=== PATIENT | male | born 1955 | race Caucasian/White ===

== ENCOUNTER 2020-12-05 06:20 | Inpatient (IN) | payer MEDICARE, MEDICAID, SELFPAY ==
[2020-12-05] VITALS (13 sets, daily range): BP systolic 93–155; BP diastolic 64–78; PULSE 62–77; RESP 20–23; TEMP 36.2–36.8; O2SAT 91–96; BMI 39.9; BMI 39.1
--- NOTE | 2020-12-05 06:26 | EKG12_ITS ---
Test Reason : SOB Blood Pressure : / mmHG Vent. Rate : 073 BPM Atrial Rate : 073 BPM P-R Int : 204 ms QRS Dur : 096 ms QT Int : 406 ms P-R-T Axes : 025 037 076 degrees QTc Int : 447 ms Normal sinus rhythm Nonspecific ST abnormality Abnormal ECG Confirmed by CHARITY TERRY, JEN ([id number]), editor map LEBRON CASILLAS ([id number]) on 12/08/2020 1:09:12 PM Referred By: BREANNA Confirmed By:JEN NASH MD
[2020-12-05 06:50] LABS: Absolute Lymphocyte Count 1.02 X10^3/uL (0.83-4.51); Basophil# 0.05 X10^3/uL; Basophil% 0.5 % (0-1); Eosinophil# 0.22 X10^3/uL; Eosinophils% 2.3 % (0-5); Hematocrit 41.9 % (40-54); Hemoglobin 11.3 g/dL (13.0-16.5); Lymphocyte # 1.02 X10^3/ul (0.83-4.51); Lymphocyte % 10.8 % (19-41); Mean Corpuscular Hgb 20.4 pg (27.0-32.0); Mean Corpuscular Volume 75.8 fL (80-94); Mean Platelet Vol. 9.8 fl (6.2-12.0); Monocyte# 1.02 X10^3/uL; Monocyte% 10.8 % (0-10); NRBC Flagged by Analyzer 0.7 % (0-5); Neutrophil % 74.5 % (47-70); Platelet Count 323 K/mm3 (150-450); RBC Distribution Width CV 19.7 % (11.6-14.6); RBC Distribution Width SD 51.3 fl (35.1-43.9); Red Blood Count 5.53 M/mm3 (4.6-6.2); White Blood Count 9.4 K/mm3 (4.4-11.0)
--- NOTE | 2020-12-05 06:53 | ED.VIS.DYS ---
HPI History of Present Illness Chief Complaint: Shortness of Breath Informant: patient Narrative Narrative: Patient was at a motel with his significant other, he is not from here, he lives in [place]. He has COPD and is on 3 L nasal cannula with a concentrator, which he had with him tonight. He is wheelchair-bound and has a right AKA, he has A. fib and is on Xarelto and amiodarone, and last year was diagnosed with congestive heart failure for which he is on Lasix and other medications. He also has diabetes and renal failure. Tonight, he rolled backwards in his wheelchair and accidentally fell out of it, and the patient and significant other state that it is difficult to get him back into it when he falls to the floor. They state given that they were in a hotel room, it was more difficult and they called EMS to assist. When they did so, the patient was profoundly hypoxic at 69% on his 3 L nasal cannula. They gave him a nebulizer treatment, this helped some but he still required a nonrebreather. The patient states that he feels just the same that he always does. He denies dyspnea. He has a chronic cough that is no worse than usual and chronic sputum production that is no worse than usual and is not with any different color than usual; it is white. He denies any new lower extremity issues, he appears to have chronic edema in his left lower extremity with changes of stasis. He has never had Covid, he did have his vaccinations, the Pfizer vaccine, one of the end of July and one at the end of August. [facility] Medical History Chronic atrial fibrillation COPD (chronic obstructive pulmonary disease) Diabetes Glaucoma HTN (hypertension) Hypothyroid Oxygen dependent Pacemaker Renal failure Home Medications Xeralto 15 mg PO.IVFORM DAILY 12/05/20 [History Last Taken Unknown] amiodarone 200 mg PO DAILY 12/05/20 [History Last Taken Unknown] amlodipine 10 mg PO DAILY 12/05/20 [History Last Taken Unknown] brimonidine 1 drp EACH EYE BID 12/05/20 [History Last Taken Unknown] buprenorphine HCl 150 mcg BUCCAL DAILY 12/05/20 [History Last Taken Unknown] dorzolamide 1 drp EACH EYE BID 12/05/20 [History Last Taken Unknown] empagliflozin [Jardiance] 40 mg PO DAILY 12/05/20 [History Last Taken Unknown] ergocalciferol (vitamin D2) [Vitamin D2] 50,000 unit PO QWEEK 12/05/20 [History Last Taken Unknown] furosemide [Lasix] 20 mg PO DAILY 12/05/20 [History Last Taken Unknown] insulin glargine [Lantus U-100 Insulin] 20 unit SUBCUT DAILY 12/05/20 [History Last Taken Unknown] insulin glargine [Lantus U-100 Insulin] 60 unit SUBCUT QPM 12/05/20 [History Last Taken Unknown] insulin lispro [Humalog KwikPen Insulin] 20 unit SUBCUT TID 12/05/20 [History Last Taken Unknown] levothyroxine 88 mcg PO DAILY 12/05/20 [History Last Taken Unknown] lovastatin 40 mg PO DAILY 12/05/20 [History Last Taken Unknown] metoprolol succinate 50 mg PO DAILY 12/05/20 [History Last Taken Unknown] netarsudil [Rhopressa] 2 drp EACH EYE QPM 12/05/20 [History Last Taken Unknown] pantoprazole 40 mg PO DAILY 12/05/20 [History Last Taken Unknown] tamsulosin 0.4 mg PO DAILY 12/05/20 [History Last Taken Unknown] ticagrelor [Brilinta] 90 mg PO BID 12/05/20 [History Last Taken Unknown] Allergy/AdvReac Type Severity Reaction Status Date / Time No Known Allergies Allergy Verified 12/05/20 06:27 Surgical History History of cardiac cath History of heart artery stent Social History Smoking Status: Former smoker ROS ROS ED Constitutional Constitutional ED: Denies chills or fever(s) Eyes Eyes: Denies change in vision or diplopia ENT ENT ED: Denies rhinorrhea or sore throat Cardiovascular Cardiovascular: Reports edema; Denies chest pain or palpitations Respiratory/Chest Respiratory/Chest: Reports as per HPI and cough; Denies dyspnea Gastrointestinal Gastrointestinal: Denies abdominal pain, diarrhea, nausea or vomiting Genitourinary Genitourinary ED: Denies dysuria or hematuria Musculoskeletal Musculoskeletal: Denies back pain or neck pain Integumentary Denies abscess or rash Neurologic Neurologic: Denies headache(s), paresthesias or weakness Psychiatric Psychiatric: Denies anxiety or suicidal thoughts EXAM Physical Exam Const Vital Signs: 12/05/20 06:22 12/05/20 06:45 12/05/20 07:22 Temperature 98.0 F Temperature Source Temporal Pulse Rate 76 72 Respiratory Rate 20 H 21 H Respiratory Effort Normal Respiratory Pattern Tachypnea Blood Pressure 149/67 H Blood Pressure Mean 94 Pulse Ox 92 Oxygen Delivery Method Non-Rebreather Oxygen Flow Rate (L/min) 15 Positive well nourished and well developed General Appearance ED: well developed and NAD HEENT Reports moist mucous membranes normocephalic and atraumatic Eyes PERRL and EOMs intact bilaterally Neck full ROM, supple and no JVD Resp normal respiratory effort Effort and Inspection: able to speak in complete sentences and prolonged expiratory phase; Negative for respiratory distress Auscultation: wheezes expiratory wheezes (end) and throughout and diminished lung sounds diffuse; Negative for crackles, rales or rhonchi Cardio regular rate, regular rhythm and no murmurs GI non-tender and non-distended Auscultation: normoactive bowel sounds Palpation: soft Back/Spine no CVA tenderness General Back: other FROM Extremity normal to inspection Extremity Narrative: Healthy appearing stump at right AKA. General Extremety ED: Yes edema; Negative for pulses abnormal or tenderness General Extremity: edema left lower extremity (Thickened skin, nontender erythema, scabbed wounds without infection, findings consistent with stasis dermatitis) mild; Negative for pulses abnormal Neuro oriented x3, CN's II-XII intact bilaterally and no sensory deficits noted Sensorium / Orientation: awake and alert Motor Exam: strength 5/5 throughout Skin no rashes or lesions noted and no wounds MDM MDM MDM Narrative Medical decision making narrative: Patient feels well although he is hypoxic. On a nonrebreather, he is 92-93%. Chest x-ray shows chronic findings, radiology is concerned about a possible right upper lobe pneumonia. It was difficult to tell if he had a pneumonia on top of a very emphysematous right lung, or if he had normal lung findings along with a bleb. Either might explain his hypoxemia if it was acute, he does not appear to have pneumothorax. Giving him more nebulizer treatments to see if we can decrease his oxygen requirement, providing antibiotic coverage, Solu-Medrol, and the plan will be for admission. Do not think he needs to be scanned for a pulmonary embolus since he is therapeutic on Xarelto. Additionally patient does not meet any requirements for sepsis, so blood cultures are not necessary. Lab Data Attestation: I reviewed the patient's lab results. Labs: Laboratory Results - last 24 hr 12/05/20 12/05/20 06:40 06:40 WBC 9.4 RBC 5.53 Hgb 11.3 L Hct 41.9 MCV 75.8 L MCH 20.4 L MCHC 27.0 L RDW Std Deviation 51.3 H RDW Coeff of Alan 19.7 H Plt Count 323 MPV 9.8 Immature Gran % (Auto) 1.100 H Neut % (Auto) 74.5 H Lymph % (Auto) 10.8 L [place] % (Auto) 10.8 H Eos % (Auto) 2.3 Baso % (Auto) 0.5 Absolute Neuts (auto) 7.0 Absolute Lymphs (auto) 1.02 Nucleated RBC % 0.7 Sodium 141 Potassium 4.0 Chloride 104 Carbon Dioxide 32.0 Anion Gap 5 BUN 38 H Creatinine 2.12 H Estim Creat Clear Calc 38.64 Est GFR (MDRD) Af Amer 41 L Est GFR (MDRD) Non-Af 34 L BUN/Creatinine Ratio 17.9 Glucose 239 H Calcium 8.9 Troponin I High Sens 17.0 Radiography Chest X-Ray - ED: 1 View and Chronic Changes (w/ probable large bleb right lung) Diagnostic Testing: Radiology Impression Chest X-Ray 12/05/20 06:54 IMPRESSION: COPD. Possible right upper lobe pneumonia. Electronically Signed: Deepak Colón MD at 7:09 EDT Tel , Service support , EKG Initial EKG: Attestation: I personally reviewed and interpreted this EKG as follows: Interpretation: Sinus Rhythm, No Acute Injury Pattern and Non-Specific ST Changes Prior: No Prior Discharge Plan Dx/Rx/DC Orders Clinical Impression: Acute hypoxemic respiratory failure, Pneumonia, COPD (chronic obstructive pulmonary disease), CHF (congestive heart failure) [facility]
--- NOTE | 2020-12-05 06:54 | RAD_ITS ---
STUDY: X-RAY CHEST REASON FOR EXAM: Male, 65 years old. hypoxemic, copd TECHNIQUE: Single AP portable view of the chest. COMPARISON: None. FINDINGS: Pacemaker is seen on the left side There is hyperinflation of the lungs consistent with chronic obstructive lung disease (COPD). Ill-defined groundglass opacities are seen in the right upper lobe suggesting pneumonia. There is no demonstrated pleural abnormality. Normal size heart. Normal mediastinum and aroldo. Normal visualized pulmonary arteries. Normal visualized aortic arch and descending thoracic aorta. Normal visualized thoracic spine. Normal visualized ribs, clavicles, and shoulders. There is no demonstrated abnormality of the visualized soft tissue structures of the upper abdomen. RAD/Chest 1 View (Portable) IMPRESSION: COPD. Possible right upper lobe pneumonia. Electronically Signed: Deepak Colón MD at 7:09 EDT Tel , Service support ,
[2020-12-05 07:08] LABS: Anion Gap 5 (5-15); BUN 38 mg/dL (7-18); BUN/Creat Ratio 17.9 RATIO (10-20); Calcium,Total 8.9 mg/dL (8.5-10.1); Chloride 104 mmol/L (98-107); Creatinine, Serum 2.12 mg/dL (0.70-1.30); EST Glomerular Filtration Rate 34 mL/min (>60); Est Glom Filt Rate - Afr Amer 41 mL/min (>60); Estimated Creatinine Clearance 38.64 ml/min; Glucose 239 mg/dL (74-106); Sodium Level 141 mmol/L (136-145)
[2020-12-05] MEDS: Albuterol 2.5 MG/3 ML VIAL.NEB. INHALATION ×2 (07:15→07:25)
--- NOTE | 2020-12-05 07:28 | CPS ---
only 2 doses ordered
[2020-12-05] MEDS: MethylPREDNISolone 125 MG/2 ML Vial IV (07:37)
[2020-12-05] MEDS: Ceftriaxone 1 GM/50 ML BAG IV (07:38)
--- NOTE | 2020-12-05 07:45 | ED.RN ---
pt o2 sats dropped to 85% while sleeping. place on 2 l o2. sats 96%
--- NOTE | 2020-12-05 07:47 | PCM.HP.STD ---
HPI - General General Date of Admission: 12/05/20 Date of Service: 12/05/20 Chief Complaint: shortness of breath HPI Narrative MARIE WALDEN, is a 65 M who presents with hypoxia. Patient is wheelchair dependent and is on vacation with his from [place] and was getting into the bathroom where his wheelchair caught and he fell backwards in a wheelchair. Patient denies hitting his head nor any loss consciousness. His was unable to get him back into his wheelchair so EMS was called. EMS went to assist but noted that his pulse ox was 69%. Patient denied any shortness of breath. Patient was brought to the emergency room and was having pulse ox in the 80s and was put on nonrebreather where his pulse ox is improved into the 90s. Patient had chest x-ray that was concerning for pneumonia and did receive ceftriaxone and Rocephin. Patient denies any fever chills but has been having increased cough as of late. Patient is home O2 dependent but has been using his condenser which was brought with him and tanks for the road trip. Patient has been vaccinated for COVID-19. [facility] Medical History (Updated 12/05/20 @ 07:[address] Kalen Reaves, ) CHF (congestive heart failure) Chronic atrial fibrillation CKD (chronic kidney disease), stage III COPD (chronic obstructive pulmonary disease) COPD (chronic obstructive pulmonary disease) Diabetes Glaucoma History of right above knee amputation HTN (hypertension) Hypothyroid Oxygen dependent Pacemaker Renal failure VTE (venous thromboembolism) Home Medications Xeralto 15 mg PO.IVFORM DAILY 12/05/20 [History Last Taken Unknown] amiodarone 200 mg PO DAILY 12/05/20 [History Last Taken Unknown] amlodipine 10 mg PO DAILY 12/05/20 [History Last Taken Unknown] brimonidine 1 drp EACH EYE BID 12/05/20 [History Last Taken Unknown] buprenorphine HCl 150 mcg BUCCAL DAILY 12/05/20 [History Last Taken Unknown] dorzolamide 1 drp EACH EYE BID 12/05/20 [History Last Taken Unknown] empagliflozin [Jardiance] 40 mg PO DAILY 12/05/20 [History Last Taken Unknown] ergocalciferol (vitamin D2) [Vitamin D2] 50,000 unit PO QWEEK 12/05/20 [History Last Taken Unknown] furosemide [Lasix] 20 mg PO DAILY 12/05/20 [History Last Taken Unknown] insulin glargine [Lantus U-100 Insulin] 20 unit SUBCUT DAILY 12/05/20 [History Last Taken Unknown] insulin glargine [Lantus U-100 Insulin] 60 unit SUBCUT QPM 12/05/20 [History Last Taken Unknown] insulin lispro [Humalog KwikPen Insulin] 20 unit SUBCUT TID 12/05/20 [History Last Taken Unknown] levothyroxine 88 mcg PO DAILY 12/05/20 [History Last Taken Unknown] lovastatin 40 mg PO DAILY 12/05/20 [History Last Taken Unknown] metoprolol succinate 50 mg PO DAILY 12/05/20 [History Last Taken Unknown] netarsudil [Rhopressa] 2 drp EACH EYE QPM 12/05/20 [History Last Taken Unknown] pantoprazole 40 mg PO DAILY 12/05/20 [History Last Taken Unknown] tamsulosin 0.4 mg PO DAILY 12/05/20 [History Last Taken Unknown] ticagrelor [Brilinta] 90 mg PO BID 12/05/20 [History Last Taken Unknown] Allergy/AdvReac Type Severity Reaction Status Date / Time No Known Allergies Allergy Verified 12/05/20 06:27 Family History (Updated 12/05/20 @ 07:[address] Kalen Reaves DO) Other Heart disease Surgical History History of cardiac cath History of heart artery stent Social History Smoking Status: Former smoker ROS ROS Narrative All review of systems were negative except as mentioned above in the history of present illness and the other review of systems. Constitutional Constitutional: Denies chills or fatigue Cardiovascular Cardiovascular: Reports edema and other Details: Edema and left lower extremity overall improving. ; Denies chest pain Respiratory/Chest Respiratory/Chest: Reports cough and dyspnea Gastrointestinal Gastrointestinal: Denies abdominal pain Genitourinary Genitourinary: Denies burning urination Vital Signs Vital Signs Vital Signs: 12/05/20 06:22 12/05/20 06:45 12/05/20 07:22 Temperature 36.7 C Temperature Source Temporal Pulse Rate 76 72 Respiratory Rate 20 H 21 H Respiratory Effort Normal Respiratory Pattern Tachypnea Blood Pressure 149/67 H Blood Pressure Mean 94 Pulse Ox 92 Oxygen Delivery Method Non-Rebreather Oxygen Flow Rate (L/min) 15 12/05/20 07:37 Temperature 36.2 C L Temperature Source Temporal Pulse Rate 72 Respiratory Rate 23 H Respiratory Effort Respiratory Pattern Blood Pressure 155/78 H Blood Pressure Mean 103 Pulse Ox 92 Oxygen Delivery Method Non-Rebreather Oxygen Flow Rate (L/min) 2 Weight Weight: 133.4 kg Body Mass Index (BMI) 39.9 Physical Exam Narrative Sitting up in bed on a nonrebreather. No conversational dyspnea. No respiratory distress. Const alert General Appearance: cooperative HEENT normocephalic and moist oral mucous membranes Eyes PERRL Neck no lymphadenopathy Neck Narrative: No thyromegaly Resp normal respiratory effort Resp Narrative: Bibasilar crackles no wheezes. Cardio regular rate, regular rhythm, S1 normal heart sound and S2 normal heart sound GI normal to inspection, nondistended, normoactive bowel sounds, soft to palpation, non-tender, non-distended and hepatosplenomegaly Extremity Extremity Narrative: Right AKA. Left lower extremity with lymphedematous changes. Slight lower extremity edema Skin Skin Narrative: Lymphedematous changes with some crusting on the left anterior woodson Neuro Sensorium / Orientation: awake and alert Results Lab / Micro Data Attestation: I reviewed the patient's lab results. Result Diagrams: 12/05/20 06:40 12/05/20 06:40 Labs: Laboratory Results - last 24 hr 12/05/20 12/05/20 06:40 06:40 WBC 9.4 RBC 5.53 Hgb 11.3 L Hct 41.9 MCV 75.8 L MCH 20.4 L MCHC 27.0 L RDW Std Deviation 51.3 H RDW Coeff of Alan 19.7 H Plt Count 323 MPV 9.8 Immature Gran % (Auto) 1.100 H Neut % (Auto) 74.5 H Lymph % (Auto) 10.8 L [place] % (Auto) 10.8 H Eos % (Auto) 2.3 Baso % (Auto) 0.5 Absolute Neuts (auto) 7.0 Absolute Lymphs (auto) 1.02 Nucleated RBC % 0.7 Sodium 141 Potassium 4.0 Chloride 104 Carbon Dioxide 32.0 Anion Gap 5 BUN 38 H Creatinine 2.12 H Estim Creat Clear Calc 38.64 Est GFR (MDRD) Af Amer 41 L Est GFR (MDRD) Non-Af 34 L BUN/Creatinine Ratio 17.9 Glucose 239 H Calcium 8.9 Troponin I High Sens 17.0 Micro: Microbiology 12/05/20 06:50 SARS-CoV-2 Antigen (Rapid) - Final Mucosa - Nose EKG Initial EKG: Attestation: I personally reviewed and interpreted this EKG as follows: Prior EKG tracings: available for review EKG Rhythm Intrepretation: Sinus Rhythm Radiology Impression Chest X-Ray 12/05/20 06:54 IMPRESSION: COPD. Possible right upper lobe pneumonia. Electronically Signed: Deepak Colón MD at 7:09 EDT Tel , Service support , Assessment & Plan Assessment/Plan (1) CHF (congestive heart failure): QUALIFIERS: Heart failure type: other Qualified Code(s): I50.9 - Heart failure, unspecified (2) VTE (venous thromboembolism): (3) COPD (chronic obstructive pulmonary disease): QUALIFIERS: COPD type: chronic bronchitis Chronic bronchitis type: unspecified Qualified Code(s): J42 - Unspecified chronic bronchitis (4) Acute respiratory failure with hypoxia: PLAN: 1. Acute on chronic hypoxic respiratory failure Due to the patient's history of chronic respiratory failure due to COPD and CHF and sleep apnea. Patient was incidentally noted to be hypoxic when he was laying on the floor in his wheelchair. Reviewing his chest x-ray is more concerning for CHF rather than pneumonia. Patient has been denying any fever and has no leukocytosis. Patient does have sleep apnea supposed to use a trilogy machine but is not doing so. Patient was going to be following up with another sleep study to see about getting a CPAP. I do not suspect Covid. Rapid Covid was negative. Patient has been vaccinated for COVID-19 Plan Patient received antibiotics in the emergency room. We will have any further plans for additional antibiotics as clinically I do not feel the patient has pneumonia Patient may have an acute exacerbation of CHF and will diurese him cautiously given his CKD 3. Check an echocardiogram Wean oxygen as tolerated No indication for BiPAP at this point. Possible the patient may have also had a mucous plugging that may have caused him to be acutely hypoxic. Will put him on chest physiotherapy 2. Presumed acute heart failure with reduced ejection fraction Patient has cardiomegaly on his chest x-ray so I feel that he likely has reduced ejection fraction. Plan: Follow-up echocardiogram IV furosemide Continue with amiodarone 3. History of venous thromboembolic disease Is a explains it, the patient underwent CPR and then apparently was throwing clots to his lower extremities which led to him having what sounds like a necrotic leg on his right which was subsequently amputated above the knee. Plan: Continue with rivaroxaban 4. Diabetes mellitus type 2 Plan: Continue with glargine as well as prandial insulin. + Scale insulin as well. 5. COPD Not in exacerbation at this time Hold off on steroids but continue with bronchodilators 6. CKD 3B Monitor while patient is diuresis 7. VTE prophylaxis: Not indicated as patient is already anticoagulated 8. Advanced care planning: Discussed with the patient. Patient wished to be full CODE STATUS. 9. Disposition: Anticipate hospitalization for 24 to 48 hours. Due to the patient's multiple medical comorbidities patient will require prolonged hospitalization to make sure that he is doing well but also the fact that he does not live in this area and is traveling back to [place] once he leaves. Charges/Coding Visit Charges Inpatient E&M: 34174 Init Hosp L3
--- NOTE | 2020-12-05 08:14 | ECHOCS_ITS ---
Version 2 Reason For Study: HTN Procedure This was a 2D Doppler, Color Flow transthoracic echocardiogram. Technically difficult study due to patients body habitus. Contrast injection performed. Exam performed portable in patient room. Left Ventricle Normal LV size. Moderate concentric left ventricular hypertrophy. Left ventricular systolic function is normal. The estimated ejection fraction is 55 %. Stage 1 diastolic dysfunction. No regional wall motion abnormalities noted. Right Ventricle Normal RV size. Normal systolic function. Tricuspid Valve Normal tricuspid valve. Moderately severe (3+) tricuspid valve insufficiency. Pulmonary artery systolic pressure is 86 mmHg. Severe pulmonary hypertension. Pulmonic Valve The pulmonic valve is not well visualized. Great Vessels Normal aortic root. The pulmonary artery is normal size. Normal inferior vena cava. Pericardium/Pleural No pericardial effusion. Medication Diluted definity 4ml given slow IV push to enhance endocardial definition. MMode/2D Measurements & Calculations LVIDd: 4.5 cm IVSd: 1.7 cm LA dimension: 4.1 cm LVIDs: 3.3 cm LVPWd: 1.5 cm FS: 26.5 % Time Measurements MV dec time: 0.40 sec Doppler Measurements & Calculations MV E max hoa: 63.9 cm/sec MV V2 max: 116.4 cm/sec MV P1/2t max hoa: 83.9 cm/sec MV A max hoa: 103.5 cm/sec MV max P.4 mmHg MV P1/2t: 78.1 msec MV E/A: 0.62 MV V2 mean: 59.0 cm/sec MV dec slope: 314.7 cm/sec2 MV mean P.7 mmHg MV V2 VTI: 27.8 cm MVA(P1/2t): 2.8 cm2 Ao V2 max: 95.3 cm/sec LV V1 max: 102.2 cm/sec PA V2 max: 88.0 cm/sec Ao max P.7 mmHg LV V1 max P.2 mmHg TR max hoa: 455.3 cm/sec TR max P.9 mmHg ECHO/Echo Complete W/ Contrast Interpretation Summary Normal LV size. Moderate concentric left ventricular hypertrophy. Left ventricular systolic function is normal. The estimated ejection fraction is 55 %. Stage 1 diastolic dysfunction. Severe pulmonary hypertension. Pulmonary artery systolic pressure is 86 mmHg. Ordering Physician: Kalen Reaves Referring Physician: Out of Town Doctor-patient visiting from [place] Performed By: Jaden Cedeno RCS
[2020-12-05 09:05] LABS: Troponin-I HS 15.1 pg/mL (3.0-78.5)
[2020-12-05 09:49] LABS: BNP,B-Type NATRIURETIC PEPTIDE 136.2 pg/mL (0-100)
[2020-12-05] MEDS: Insulin Lispro 100 UNIT/ML INSULN.PEN 20 UNIT SC ×3 (10:00→17:17)
[2020-12-05] MEDS: Furosemide 40 MG/4 ML Vial IV ×2 (10:43→17:17)
[2020-12-05] MEDS: guaiFENesin 600 MG Tablet PO ×2 (10:44→21:56)
[2020-12-05] MEDS: TICAGRELOR 90 MG TABLET PO ×2 (10:44→21:56)
[2020-12-05] MEDS: amLODIPine 10 MG Tablet PO (10:44)
[2020-12-05] MEDS: Empagliflozin 10 MG Tablet PO (10:44)
[2020-12-05] MEDS: Amiodarone 200 MG Tablet PO (10:44)
[2020-12-05] MEDS: Pantoprazole Sodium 40 MG Tablet PO (10:44)
[2020-12-05] MEDS: Metoprolol(XL)Succ 50 MG Tablet PO (10:44)
[2020-12-05] MEDS: BRIMONIDINE 0.15% 5 ML Bottle 1 DRP EACH EYE ×2 (10:45→21:54)
[2020-12-05] MEDS: buPROPion (XL) 150 MG TABLET.XL PO (10:45)
[2020-12-05 12:36] LABS: Bedside Glucose 341 mg/dL (70-110)
[2020-12-05] MEDS: Insulin Lispro 100 UNIT/ML INSULN.PEN SC ×2 (12:58→17:17)
[2020-12-05] MEDS: Dorzolamide HCL/Timolol 10 ml Bottle 1 DRP EACH EYE ×2 (12:59→21:54)
[2020-12-05 13:32] LABS: Troponin-I HS 11.5 pg/mL (3.0-78.5)
[2020-12-05 17:10] LABS: Bedside Glucose 304 mg/dL (70-110)
[2020-12-05] MEDS: Tamsulosin HCl 0.4 MG Capsule PO (17:17)
[2020-12-05] MEDS: 0.9% Saline Lock 10 ML Syringe IV (17:17)
[2020-12-05] MEDS: Rivaroxaban 15 MG Tablet PO (17:17)
[2020-12-05] MEDS: NETARSUDIL MESYLATE 1 DRP OPHTHALMIC (21:53)
[2020-12-05] MEDS: Atorvastatin Calcium 40 MG Tablet PO (21:56)
[2020-12-05 22:10] LABS: Bedside Glucose 253 mg/dL (70-110)
[2020-12-06] VITALS (13 sets, daily range): BP systolic 116–147; BP diastolic 34–87; PULSE 56–68; RESP 16–20; TEMP 36.3–37; O2SAT 90–96
[2020-12-06] MEDS: Levothyroxine 88 MCG Tablet PO (05:46)
[2020-12-06 06:41] LABS: Absolute Lymphocyte Count 0.87 X10^3/uL (0.83-4.51); Absolute Neutrophil Count 8.2 X10^3/uL (2.0-7.7); Basophil# 0.02 X10^3/uL; Basophil% 0.2 % (0-1); Hemoglobin 10.6 g/dL (13.0-16.5); Lymphocyte # 0.87 X10^3/ul (0.83-4.51); Lymphocyte % 8.6 % (19-41); Mean Corp Hgb Conc 27.2 g/dL (32-36); Mean Corpuscular Hgb 20.7 pg (27.0-32.0); Mean Corpuscular Volume 76.2 fL (80-94); Mean Platelet Vol. 9.2 fl (6.2-12.0); Monocyte# 1.03 X10^3/uL; Monocyte% 10.1 % (0-10); NRBC Flagged by Analyzer 0.4 % (0-5); Neutrophil # 8.17 X10^3/uL (2.7-7.7); Neutrophil % 80.4 % (47-70); Platelet Count 296 K/mm3 (150-450); RBC Distribution Width CV 19.7 % (11.6-14.6); RBC Distribution Width SD 51.6 fl (35.1-43.9); Red Blood Count 5.12 M/mm3 (4.6-6.2); White Blood Count 10.2 K/mm3 (4.4-11.0)
[2020-12-06 07:13] LABS: ALB/GLOB Ratio 0.8 RATIO (0.9-2.4); AST(SGOT) 13 U/L (15-37); Alanine Aminotransfer ALT/SGPT 19 U/L (16-61); Alkaline Phosphatase 93 U/L (45-117); Anion Gap 5 (5-15); BUN 48 mg/dL (7-18); BUN/Creat Ratio 20.8 RATIO (10-20); Calcium,Total 8.6 mg/dL (8.5-10.1); Chloride 105 mmol/L (98-107); Creatinine, Serum 2.31 mg/dL (0.70-1.30); EST Glomerular Filtration Rate 30 mL/min (>60); Est Glom Filt Rate - Afr Amer 37 mL/min (>60); Estimated Creatinine Clearance 35.46 ml/min; Globulin 3.9 g/dL (2.2-4.2); Glucose 237 mg/dL (74-106); Protein, Total 6.9 g/dL (6.4-8.2); Sodium Level 142 mmol/L (136-145)
[2020-12-06] MEDS: Insulin Lispro 100 UNIT/ML INSULN.PEN SC ×3 (07:59→17:22)
[2020-12-06] MEDS: Insulin Lispro 100 UNIT/ML INSULN.PEN 20 UNIT SC ×3 (08:00→17:23)
[2020-12-06] MEDS: Amiodarone 200 MG Tablet PO (08:01)
[2020-12-06] MEDS: 0.9% Saline Lock 10 ML Syringe IV ×2 (08:06→21:37)
[2020-12-06 08:31] LABS: Bedside Glucose 351 mg/dL (70-110)
--- NOTE | 2020-12-06 09:35 | CASEMGMT ---
RN SUZANNE Face to Face with patient for initial transition planning/care coordination assessment. RN CM introduced self and role at [facility]. Patient sitting in chair, alert and oriented. Patient willing to participate in assessment and is able to answer all questions appropriately. Care providers, pharmacy, and demographics verified. Patient wishes to discharge home, denies need for home health at this time. Patient states he has no further needs or concerns at this time. CM to follow for discharge planning needs that may arise. Patient traveling home from visiting [place] PCP: Gali Suosa Specialists: Sarah Beth seat installer Preferred Pharmacy: [facility] Insurance: [employer] Prescription Benefit: yes Living Will/HPOA: yes, significant other, Rosa Huang LNOK: sig other Living Arrangements: Patient lives with significant other in 1 story home with ramp to enter the home. Patient states he is independent with selfcare at home. Transportation: Significant other DME/HHC: Patient states he has tub bench, walker, wheelchair, cpap, and home oxygen with portability at 3 lpm. Patient denies needs for HHC Disposition Plan: Patient to discharge home with family support and follow-up plans in place. Ronel MCCARTNEY, RN, CM
--- NOTE | 2020-12-06 10:56 | PN.HOSP_ITS ---
Subjective Subjective On 10 liters of oxygen. States he has been checking his oxygen, but does not know the results. Objective Data Objective Data Vital Signs: Vital Signs Temp Pulse Resp BP Pulse Ox 36.3 C L 61 18 144/87 H 95 12/06/20 07:55 12/06/20 07:55 12/06/20 07:55 12/06/20 07:55 12/06/20 07:55 Oxygen Flow Rate (L/min) 10 Oxygen Delivery Method Nasal Cannula Weight: 129.9 kg Body Mass Index (BMI) 39.1 Intake & Output: Intake and Output for Last 24 Hours 12/04/20 12/05/20 12/06/20 23:59 23:59 23:59 Intake Total 1865 / 1865 320 / 320 Output Total 3190 / 3190 1075 / 1075 Balance -1325 / -1325 -755 / -755 Lab / Micro Data Result Diagrams: 12/06/20 06:34 12/06/20 06:34 Labs: Laboratory Results - last 24 hr 12/05/20 12/05/20 12/05/20 12:29 13:05 16:50 WBC RBC Hgb Hct MCV MCH MCHC RDW Std Deviation RDW Coeff of Alan Plt Count MPV Immature Gran % (Auto) Neut % (Auto) Lymph % (Auto) Irion % (Auto) Eos % (Auto) Baso % (Auto) Absolute Neuts (auto) Absolute Lymphs (auto) Nucleated RBC % Sodium Potassium Chloride Carbon Dioxide Anion Gap BUN Creatinine Estim Creat Clear Calc Est GFR (MDRD) Af Amer Est GFR (MDRD) Non-Af BUN/Creatinine Ratio Glucose Calcium Total Bilirubin AST ALT Alkaline Phosphatase Troponin I High Sens 11.5 Total Protein Albumin Globulin Albumin/Globulin Ratio POC Glucose 341 H 304 H 12/05/20 12/06/20 12/06/20 21:50 06:34 06:34 WBC 10.2 RBC 5.12 Hgb 10.6 L Hct 39.0 L MCV 76.2 L MCH 20.7 L MCHC 27.2 L RDW Std Deviation 51.6 H RDW Coeff of Alan 19.7 H Plt Count 296 MPV 9.2 Immature Gran % (Auto) 0.700 Neut % (Auto) 80.4 H Lymph % (Auto) 8.6 L Irion % (Auto) 10.1 H Eos % (Auto) 0.0 Baso % (Auto) 0.2 Absolute Neuts (auto) 8.2 H Absolute Lymphs (auto) 0.87 Nucleated RBC % 0.4 Sodium 142 Potassium 4.0 Chloride 105 Carbon Dioxide 32.0 Anion Gap 5 BUN 48 H Creatinine 2.31 H Estim Creat Clear Calc 35.46 Est GFR (MDRD) Af Amer 37 L Est GFR (MDRD) Non-Af 30 L BUN/Creatinine Ratio 20.8 H Glucose 237 H Calcium 8.6 Total Bilirubin 0.60 AST 13 L ALT 19 Alkaline Phosphatase 93 Troponin I High Sens Total Protein 6.9 Albumin 3.0 L Globulin 3.9 Albumin/Globulin Ratio 0.8 L POC Glucose 253 H 12/06/20 07:52 WBC RBC Hgb Hct MCV MCH MCHC RDW Std Deviation RDW Coeff of Alan Plt Count MPV Immature Gran % (Auto) Neut % (Auto) Lymph % (Auto) Irion % (Auto) Eos % (Auto) Baso % (Auto) Absolute Neuts (auto) Absolute Lymphs (auto) Nucleated RBC % Sodium Potassium Chloride Carbon Dioxide Anion Gap BUN Creatinine Estim Creat Clear Calc Est GFR (MDRD) Af Amer Est GFR (MDRD) Non-Af BUN/Creatinine Ratio Glucose Calcium Total Bilirubin AST ALT Alkaline Phosphatase Troponin I High Sens Total Protein Albumin Globulin Albumin/Globulin Ratio POC Glucose 351 H Micro: Microbiology 12/05/20 06:50 Mucosa - Nose SARS-CoV-2 Antigen (Rapid) - Final Radiography Diagnostic Testing: Radiology Impression Echocardiogram 12/05/20 08:14 Interpretation Summary Normal LV size. Moderate concentric left ventricular hypertrophy. Left ventricular systolic function is normal. The estimated ejection fraction is 55 %. Stage 1 diastolic dysfunction. Severe pulmonary hypertension. Pulmonary artery systolic pressure is 86 mmHg. Ordering Physician: Kalen Reaves Referring Physician: Out of Town Doctor-patient visiting from [place] Performed By: Jaden Cedeno RCS Physical Exam Const alert Constitutional Narrative: Up in chair. flat affect. HEENT head/scalp atraumatic Head and Scalp: normocephalic Resp Resp Narrative: diminished. clear Cardio regular rate, regular rhythm, S1 normal heart sound and S2 normal heart sound GI normal to inspection, nondistended, normoactive bowel sounds, soft to palpation, non-tender and non-distended GI Narrative: obese. Extremity Extremity Narrative: no edema in LLE Assessment & Plan Assessment/Plan (1) CHF (congestive heart failure): QUALIFIERS: Heart failure type: other Qualified Code(s): I50.9 - Heart failure, unspecified (2) VTE (venous thromboembolism): (3) COPD (chronic obstructive pulmonary disease): QUALIFIERS: COPD type: chronic bronchitis Chronic bronchitis type: unspecified Qualified Code(s): J42 - Unspecified chronic bronchitis (4) Acute respiratory failure with hypoxia: PLAN: 1. Acute on chronic hypoxic respiratory failure Due to the patient's history of chronic respiratory failure due to COPD and CHF and sleep apnea. Patient was incidentally noted to be hypoxic when he was laying on the floor in his wheelchair. Reviewing his chest x-ray is more concerning for CHF rather than pneumonia. Patient has been denying any fever and has no leukocytosis. Patient does have sleep apnea supposed to use a trilogy machine but is not doing so. Patient was going to be following up with another sleep study to see about getting a CPAP. I do not suspect Covid. Rapid Covid was negative. Patient has been vaccinated for COVID-19 Plan * Patient received antibiotics in the emergency room. We will have any further plans for additional antibiotics as clinically I do not feel the patient has pneumonia * Patient may have an acute exacerbation of CHF and will diurese him cautiously given his CKD 3. * Check an echocardiogram * Wean oxygen as tolerated * No indication for BiPAP at this point. * Possible the patient may have also had a mucous plugging that may have caused him to be acutely hypoxic. Will put him on chest physiotherapy * check records from [facility] in [place], [place] 2. Presumed acute heart failure with reduced ejection fraction Patient has cardiomegaly on his chest x-ray so I feel that he likely has reduced ejection fraction. Plan: * Follow-up echocardiogram * change furosemide to PO * Continue with amiodarone 3. History of venous thromboembolic disease Is a explains it, the patient underwent CPR and then apparently was throwing clots to his lower extremities which led to him having what sounds like a necrotic leg on his right which was subsequently amputated above the knee. Plan: Continue with rivaroxaban 4. Diabetes mellitus type 2 Plan: Continue with glargine as well as prandial insulin. + Scale insulin as well. 5. COPD Given lack of improvement will add methylpred Hold off on steroids but continue with bronchodilators 6. CKD 3B Monitor while patient is diuresis 7. VTE prophylaxis: Not indicated as patient is already anticoagulated 8. Advanced care planning: Discussed with the patient. Patient wished to be full CODE STATUS. 9. Disposition: Ongoing. Pt will need to be on far less oxygen prior to discharge as he was on a road trip. Charges/Coding Visit Charges Inpatient E&M: 36865 Subs Hosp L3
[2020-12-06] MEDS: BRIMONIDINE 0.15% 5 ML Bottle 1 DRP EACH EYE ×2 (10:57→21:33)
[2020-12-06] MEDS: Dorzolamide HCL/Timolol 10 ml Bottle 1 DRP EACH EYE ×2 (10:57→21:32)
[2020-12-06] MEDS: TICAGRELOR 90 MG TABLET PO ×2 (10:58→21:32)
[2020-12-06] MEDS: Empagliflozin 10 MG Tablet PO (10:58)
[2020-12-06] MEDS: guaiFENesin 600 MG Tablet PO ×2 (10:59→21:32)
[2020-12-06] MEDS: Furosemide 40 MG/4 ML Vial IV (10:59)
[2020-12-06] MEDS: amLODIPine 10 MG Tablet PO (11:00)
[2020-12-06] MEDS: Pantoprazole Sodium 40 MG Tablet PO (11:00)
[2020-12-06] MEDS: buPROPion (XL) 150 MG TABLET.XL PO (11:01)
[2020-12-06] MEDS: Metoprolol(XL)Succ 50 MG Tablet PO (11:01)
[2020-12-06 12:26] LABS: Bedside Glucose 150 mg/dL (70-110)
[2020-12-06 16:41] LABS: Bedside Glucose 173 mg/dL (70-110)
[2020-12-06] MEDS: Rivaroxaban 15 MG Tablet PO (17:25)
[2020-12-06] MEDS: Tamsulosin HCl 0.4 MG Capsule PO (17:26)
[2020-12-06] MEDS: Furosemide 40 MG Tablet PO (17:26)
[2020-12-06] MEDS: Ipratropium/Albuterol Sulfate 3 ML AMPUL.NEB INHALATION (19:04)
[2020-12-06] MEDS: Atorvastatin Calcium 40 MG Tablet PO (21:32)
[2020-12-06] MEDS: NETARSUDIL MESYLATE 1 DRP OPHTHALMIC (21:32)
[2020-12-06 21:45] LABS: Bedside Glucose 243 mg/dL (70-110)
[2020-12-06] MEDS: Albuterol 2.5 MG/3 ML VIAL.NEB. INHALATION (22:48)
[2020-12-07] VITALS (15 sets, daily range): BP systolic 110–138; BP diastolic 43–65; PULSE 51–66; RESP 16–22; TEMP 36.4–36.9; O2SAT 89–96
[2020-12-07 05:37] LABS: Absolute Lymphocyte Count 0.35 X10^3/uL (0.83-4.51); Absolute Neutrophil Count 7.7 X10^3/uL (2.0-7.7); Basophil# 0.02 X10^3/uL; Basophil% 0.2 % (0-1); Hematocrit 40.6 % (40-54); Hemoglobin 11.1 g/dL (13.0-16.5); Lymphocyte # 0.35 X10^3/ul (0.83-4.51); Lymphocyte % 4.2 % (19-41); Mean Corp Hgb Conc 27.3 g/dL (32-36); Mean Corpuscular Hgb 20.6 pg (27.0-32.0); Mean Corpuscular Volume 75.2 fL (80-94); Mean Platelet Vol. 9.8 fl (6.2-12.0); Monocyte# 0.23 X10^3/uL; Monocyte% 2.7 % (0-10); NRBC Flagged by Analyzer 0 % (0-5); Neutrophil # 7.72 X10^3/uL (2.7-7.7); Neutrophil % 92.2 % (47-70); POSITIVE DIFFERENTIAL YES; Platelet Count 322 K/mm3 (150-450); RBC Distribution Width CV 19.7 % (11.6-14.6); RBC Distribution Width SD 50.6 fl (35.1-43.9); White Blood Count 8.4 K/mm3 (4.4-11.0)
[2020-12-07 05:51] LABS: Differential Indicated SCAN CRITERIA MET
[2020-12-07 06:00] LABS: Anion Gap 8 (5-15); BUN 58 mg/dL (7-18); BUN/Creat Ratio 29.3 RATIO (10-20); Calcium,Total 9.1 mg/dL (8.5-10.1); Chloride 99 mmol/L (98-107); Creatinine, Serum 1.98 mg/dL (0.70-1.30); EST Glomerular Filtration Rate 36 mL/min (>60); Est Glom Filt Rate - Afr Amer 44 mL/min (>60); Estimated Creatinine Clearance 41.37 ml/min; Glucose 236 mg/dL (74-106); Potassium 4.1 mmol/L (3.5-5.1); Sodium Level 137 mmol/L (136-145)
[2020-12-07 06:17] LABS: Anisocytosis 1+; Differential Comment SCANNED; Macrocytosis RARE; Microcytosis 1+; Polychromasia RARE
[2020-12-07] MEDS: Levothyroxine 88 MCG Tablet PO (06:19)
[2020-12-07] MEDS: 0.9% Saline Lock 10 ML Syringe IV ×2 (06:20→15:17)
[2020-12-07] MEDS: Ipratropium/Albuterol Sulfate 3 ML AMPUL.NEB INHALATION ×2 (07:09→18:32)
[2020-12-07] MEDS: Insulin Lispro 100 UNIT/ML INSULN.PEN 20 UNIT SC ×3 (08:22→17:42)
[2020-12-07] MEDS: Insulin Lispro 100 UNIT/ML INSULN.PEN SC ×3 (08:23→17:43)
[2020-12-07] MEDS: Amiodarone 200 MG Tablet PO (08:25)
[2020-12-07 09:06] LABS: Bedside Glucose 231 mg/dL (70-110)
[2020-12-07] MEDS: TICAGRELOR 90 MG TABLET PO ×2 (10:07→21:52)
[2020-12-07] MEDS: Empagliflozin 10 MG Tablet PO (10:08)
[2020-12-07] MEDS: Furosemide 40 MG Tablet PO (10:08)
[2020-12-07] MEDS: amLODIPine 10 MG Tablet PO (10:09)
[2020-12-07] MEDS: Pantoprazole Sodium 40 MG Tablet PO (10:09)
[2020-12-07] MEDS: guaiFENesin 600 MG Tablet PO ×2 (10:09→21:52)
[2020-12-07] MEDS: Metoprolol(XL)Succ 50 MG Tablet PO (10:10)
[2020-12-07] MEDS: buPROPion (XL) 150 MG TABLET.XL PO (10:12)
[2020-12-07] MEDS: BRIMONIDINE 0.15% 5 ML Bottle 1 DRP EACH EYE ×2 (10:13→22:03)
[2020-12-07] MEDS: Dorzolamide HCL/Timolol 10 ml Bottle 1 DRP EACH EYE ×2 (10:13→22:02)
--- NOTE | 2020-12-07 11:11 | CON.PCM.CC_ITS ---
Assessment & Plan Assessment/Plan (1) Acute respiratory failure with hypoxia: (2) Cor pulmonale, chronic: (3) COPD (chronic obstructive pulmonary disease): PLAN: RECOMMENDATIONS: 1. Continue with aggressive diuresis 2. Monitor off antibiotics 3. Wean oxygen as tolerated 4. Likely wean steroids in the next 24 to 48 hours. Continue bronchodilators 5. Aggressive control of blood sugars 6. BiPAP rescue as necessary with sleep IMPRESSIONS: 1. Acute on chronic hypoxic respiratory failure secondary to cor pulmonale Patient with multiple etiologies for increased pulmonary artery pressures. Presence of clubbing suggests long-term oxygen deprivation. Patient is likely fluid overloaded given his renal function is improving with diuresis. Would continue with diuresis as renal function allows. Low clinical suspicion for COPD exacerbation at this time, but COPD is likely adding to pulmonary artery pressures from a chronic standpoint. Given patient is far from home and is already established with a sorting machine operator, would aggressively diurese and have him follow-up with his primary sorting machine operator. Given low clinical suspicion for exacerbation, a 5-day burst of steroids is likely sufficient. Continue bronchodilators. Patient may benefit from a right heart catheterization, but this likely does not need to be completed as an inpatient. 2. CHF/CKD stage IIIb/diabetes mellitus type 2/history of VTE/morbid obe sity/decreased mobility Complicates care, management, recovery and prognosis. Diabetes is likely to be exacerbated by steroid therapy. Continue with aggressive diuresis. No indications for discontinuation of anticoagulation from my perspective. Patient would benefit from a dietary evaluation on teaching for a low-salt diet. High clinical suspicion the patient has concomitant KIEL, so using BiPAP with AVAPS overnight with a targeted tidal volume of 450 may be necessary if patient continues to be hypoxic. HPI Consult Data Date of Consult: 12/07/20 HPI Narrative HPI Narrative: MARIE WALDEN is a 65 M, with past medical history listed below, who presented to [facility] on 12/05/2020 secondary to progressive shortness of breath. Patient reportedly was at a motel when he started to developing worsening shortness of breath. Patient does have a long history of both cardiac and pulmonary etiologies for which she follows with specialist in this home town in [place]. Patient is typically wheelchair-bound secondary to a right AKA. On the day of presentation, patient had fallen backwards out of his wheelchair and EMS was called. Patient was noted to be 69% on his baseline 3 L nasal cannula oxygen and did not respond to a nebulizer treatment. Patient has not reported any change in his baseline sputum. Patient reportedly did receive his Covid vaccination series. In the ER, patient was afebrile and not tachycardic. However, patient did require 15 L nonrebreather to maintain a saturation of 92%. Blood pressure was slightly high at 149/67. Chest x-ray was not suggestive of any acute abnormalities, but patient did have findings consistent with emphysema. Laboratory work-up was relatively unremarkable except for an anemia of 11.3, creatinine of 2.12 and an elevated glucose of 239. High-sensitivity troponin was normal at 17. Patient was given antibiotics, Solu-Medrol and admitted to the hospital. Patient did not have a CTA as he reportedly has been compliant with his Xarelto therapy. Since being hospitalized, patient feels subjectively slightly improved compared to previous. Patient denies any current chest pain, bowel pain, nausea or vomiting. Patient does readily transport in a wheelchair, but actively transfers himself. Patient states he typically saturates in the low 90s on his 3 L at baseline. Patient states he follows a low-salt diet, but readily admits to having processed meats, macaroni and cheese and chips. Patient does follow with a sorting machine operator and reportedly has relatively advanced COPD. Patient is unaware of his FEV1, but states he has been on oxygen for some time. Patient states he is compliant with his inhaler therapy. Review of systems otherwise negative from a constitutional, HEENT, respiratory, cardiovascular, GI, genitourinary, musculoskeletal, skin, neurologic, psychiatric and hematologic system unless stated above. [facility] Medical History (Updated 12/07/20 @ 11:[address] Jhon Landa MD) Anemia Cardiac defibrillator in place CHF (congestive heart failure) Chronic atrial fibrillation CKD (chronic kidney disease), stage III COPD (chronic obstructive pulmonary disease) Depression Diabetes Former smoker Glaucoma History of right above knee amputation HTN (hypertension) Hypothyroid Oxygen dependent Renal failure VTE (venous thromboembolism) Home Medications Xeralto 15 mg PO.IVFORM DINNER 12/05/20 [History Last Taken 12/04/20] amiodarone 200 mg PO DAILY 12/05/20 [History Last Taken 12/04/20] amlodipine 10 mg PO DAILY 12/05/20 [History Last Taken 12/04/20] atorvastatin 40 mg PO QHS 12/05/20 [History Last Taken 12/04/20] brimonidine 1 drp EACH EYE BID 12/05/20 [History Last Taken 12/04/20] bupropion HCl 150 mg PO DAILY 12/05/20 [History Last Taken 12/04/20] dorzolamide-timolol 1 drp EACH EYE BID 12/05/20 [History Last Taken 12/04/20] empagliflozin [Jardiance] 10 mg PO DAILY 12/05/20 [History Last Taken 12/04/20] ergocalciferol (vitamin D2) [Vitamin D2] 50,000 unit PO QWEEK 12/05/20 [History Last Taken 12/01/20] furosemide [Lasix] 20 mg PO DAILY 12/05/20 [History Last Taken 12/04/20] insulin glargine [Lantus U-100 Insulin] 20 unit SUBCUT DAILY 12/05/20 [History Last Taken 12/04/20] insulin glargine [Lantus U-100 Insulin] 60 unit SUBCUT QPM 12/05/20 [History Last Taken 12/04/20] insulin lispro [Humalog KwikPen Insulin] 25 unit SUBCUT TID 12/05/20 [History Last Taken 12/04/20] levothyroxine 88 mcg PO DAILY 12/05/20 [History Last Taken 12/04/20] metoprolol succinate 50 mg PO DAILY 12/05/20 [History Last Taken 12/04/20] netarsudil [Rhopressa] 1 drp EACH EYE QPM 12/05/20 [History Last Taken 12/04/20] pantoprazole 40 mg PO DAILY 12/05/20 [History Last Taken 12/04/20] tamsulosin 0.4 mg PO DAILY 12/05/20 [History Last Taken 12/04/20] ticagrelor [Brilinta] 90 mg PO BID 12/05/20 [History Last Taken 12/04/20] trazodone 50 mg PO QHS 12/05/20 [History Last Taken 12/04/20] umeclidinium-vilanterol [Anoro Ellipta] 1 ea INHALATION DAILY 12/05/20 [History Last Taken 12/04/20] Allergy/AdvReac Type Severity Reaction Status Date / Time No Known Allergies Allergy Verified 12/05/20 06:27 Family History Other Heart disease Surgical History History of cardiac cath History of heart artery stent Social History Smoking Status: Former smoker ROS ROS Narrative See HPI Physical Exam Const alert, oriented x3 and no apparent distress General Appearance: cooperative and comfortable Nutritional Appearance: morbidly obese HEENT head/scalp atraumatic Head and Scalp: normocephalic Neck General: JVD Lymph Lymphatic: no lymphadenopathy noted Chest Chest Narrative: Increased AP diameter Resp normal respiratory effort Auscultation: diminished lung sounds; Negative for rales, rhonchi or wheezes Cardio regular rate, regular rhythm, S1 normal heart sound and S2 normal heart sound GI normal to inspection, nondistended, normoactive bowel sounds, soft to palpation, non-tender and non-distended GI Narrative: obese. Extremity Extremity Narrative: no edema in LLE, but venous stasis changes noted. Right lower extremity AKA General Extremity: amputation and clubbing Peripheral Pulses: Yes radial pulses present Skin Skin Narrative: Venous stasis changes of the left lower extremity. Significant edema in right AKA Neuro oriented x3, CN's II-XII intact bilaterally, moves all extremities and no focal motor deficits Psych mental status grossly normal, thought process normal and cooperative Lab / Micro Data Result Diagrams: 12/07/20 05:25 12/07/20 05:25 Labs: Laboratory Results - last 24 hr 12/06/20 12/06/20 12/06/20 12:09 16:20 21:26 WBC RBC Hgb Hct MCV MCH MCHC RDW Std Deviation RDW Coeff of Alan Plt Count MPV Immature Gran % (Auto) Neut % (Auto) Lymph % (Auto) Phillips % (Auto) Eos % (Auto) Baso % (Auto) Absolute Neuts (auto) Absolute Lymphs (auto) Nucleated RBC % Differential Comment Polychromasia Anisocytosis Microcytosis Macrocytosis Sodium Potassium Chloride Carbon Dioxide Anion Gap BUN Creatinine Estim Creat Clear Calc Est GFR (MDRD) Af Amer Est GFR (MDRD) Non-Af BUN/Creatinine Ratio Glucose Calcium POC Glucose 150 H 173 H 243 H 12/07/20 12/07/20 12/07/20 05:25 05:25 08:20 WBC 8.4 RBC 5.40 Hgb 11.1 L Hct 40.6 MCV 75.2 L MCH 20.6 L MCHC 27.3 L RDW Std Deviation 50.6 H RDW Coeff of Alan 19.7 H Plt Count 322 MPV 9.8 Immature Gran % (Auto) 0.700 Neut % (Auto) 92.2 H Lymph % (Auto) 4.2 L Phillips % (Auto) 2.7 Eos % (Auto) 0.0 Baso % (Auto) 0.2 Absolute Neuts (auto) 7.7 Absolute Lymphs (auto) 0.35 L Nucleated RBC % 0 Differential Comment SCANNED Polychromasia RARE Anisocytosis 1+ Microcytosis 1+ Macrocytosis RARE Sodium 137 Potassium 4.1 Chloride 99 Carbon Dioxide 30.0 Anion Gap 8 BUN 58 H Creatinine 1.98 H Estim Creat Clear Calc 41.37 Est GFR (MDRD) Af Amer 44 L Est GFR (MDRD) Non-Af 36 L BUN/Creatinine Ratio 29.3 H Glucose 236 H Calcium 9.1 POC Glucose 231 H Charges/Coding Visit Charges Inpatient E&M: 23967 Init Hosp L3
[2020-12-07 11:55] LABS: Bedside Glucose 329 mg/dL (70-110)
--- NOTE | 2020-12-07 12:07 | PN.HOSP_ITS ---
Subjective Subjective breathing fine. No new issues at present. Objective Data Objective Data Vital Signs: Vital Signs Temp Pulse Resp BP Pulse Ox 36.6 C 63 17 130/61 H 94 12/07/20 08:32 12/07/20 10:10 12/07/20 08:32 12/07/20 08:32 12/07/20 08:32 Oxygen Flow Rate (L/min) 8 Oxygen Delivery Method Nasal Cannula Weight: 130 kg Body Mass Index (BMI) 39.1 Intake & Output: Intake and Output for Last 24 Hours 12/05/20 12/06/20 12/07/20 23:59 23:59 23:59 Intake Total 1865 / 1865 1640 / 1640 480 / 480 Output Total 3190 / 3190 3125 / 3125 1200 / 1200 Balance -1325 / -1325 -1485 / -1485 -720 / -720 Lab / Micro Data Result Diagrams: 12/07/20 05:25 12/07/20 05:25 Labs: Laboratory Results - last 24 hr 12/06/20 12/06/20 12/06/20 12:09 16:20 21:26 WBC RBC Hgb Hct MCV MCH MCHC RDW Std Deviation RDW Coeff of Alan Plt Count MPV Immature Gran % (Auto) Neut % (Auto) Lymph % (Auto) Wilkinson % (Auto) Eos % (Auto) Baso % (Auto) Absolute Neuts (auto) Absolute Lymphs (auto) Nucleated RBC % Differential Comment Polychromasia Anisocytosis Microcytosis Macrocytosis Sodium Potassium Chloride Carbon Dioxide Anion Gap BUN Creatinine Estim Creat Clear Calc Est GFR (MDRD) Af Amer Est GFR (MDRD) Non-Af BUN/Creatinine Ratio Glucose Calcium POC Glucose 150 H 173 H 243 H 12/07/20 12/07/20 12/07/20 05:25 05:25 08:20 WBC 8.4 RBC 5.40 Hgb 11.1 L Hct 40.6 MCV 75.2 L MCH 20.6 L MCHC 27.3 L RDW Std Deviation 50.6 H RDW Coeff of Alna 19.7 H Plt Count 322 MPV 9.8 Immature Gran % (Auto) 0.700 Neut % (Auto) 92.2 H Lymph % (Auto) 4.2 L Wilkinson % (Auto) 2.7 Eos % (Auto) 0.0 Baso % (Auto) 0.2 Absolute Neuts (auto) 7.7 Absolute Lymphs (auto) 0.35 L Nucleated RBC % 0 Differential Comment SCANNED Polychromasia RARE Anisocytosis 1+ Microcytosis 1+ Macrocytosis RARE Sodium 137 Potassium 4.1 Chloride 99 Carbon Dioxide 30.0 Anion Gap 8 BUN 58 H Creatinine 1.98 H Estim Creat Clear Calc 41.37 Est GFR (MDRD) Af Amer 44 L Est GFR (MDRD) Non-Af 36 L BUN/Creatinine Ratio 29.3 H Glucose 236 H Calcium 9.1 POC Glucose 231 H 12/07/20 11:46 WBC RBC Hgb Hct MCV MCH MCHC RDW Std Deviation RDW Coeff of Alan Plt Count MPV Immature Gran % (Auto) Neut % (Auto) Lymph % (Auto) Wilkinson % (Auto) Eos % (Auto) Baso % (Auto) Absolute Neuts (auto) Absolute Lymphs (auto) Nucleated RBC % Differential Comment Polychromasia Anisocytosis Microcytosis Macrocytosis Sodium Potassium Chloride Carbon Dioxide Anion Gap BUN Creatinine Estim Creat Clear Calc Est GFR (MDRD) Af Amer Est GFR (MDRD) Non-Af BUN/Creatinine Ratio Glucose Calcium POC Glucose 329 H Micro: Microbiology 12/05/20 06:50 Mucosa - Nose SARS-CoV-2 Antigen (Rapid) - Final Physical Exam Const alert HEENT normocephalic Neck full ROM Chest inspection of chest normal, palpation of chest normal, inspection of breasts normal and palpation of breasts normal Resp normal respiratory effort, no retractions and no use of accessory muscles Resp Narrative: coarse BS Cardio regular rate, regular rhythm, S1 normal heart sound and S2 normal heart sound GI GI Narrative: obese. soft Assessment & Plan Assessment/Plan (1) CHF (congestive heart failure): QUALIFIERS: Heart failure type: other Qualified Code(s): I50.9 - Heart failure, unspecified (2) VTE (venous thromboembolism): (3) COPD (chronic obstructive pulmonary disease): QUALIFIERS: COPD type: chronic bronchitis Chronic bronchitis type: unspecified Qualified Code(s): J42 - Unspecified chronic bronchitis (4) Acute respiratory failure with hypoxia: PLAN: 1. Acute on chronic hypoxic respiratory failure Due to the patient's history of chronic respiratory failure due to COPD and CHF and sleep apnea and severe pulmonary HTN Patient was incidentally noted to be hypoxic when he was laying on the floor in his wheelchair. Reviewing his chest x-ray is more concerning for CHF rather than pneumonia. Patient has been denying any fever and has no leukocytosis. Patient does have sleep apnea supposed to use a trilogy machine but is not doing so. Patient was going to be following up with another sleep study to see about getting a CPAP. I do not suspect Covid. Rapid Covid was negative. Patient has been vaccinated for COVID-19 Plan * Patient received antibiotics in the emergency room. We will have any further plans for additional antibiotics as clinically I do not feel the patient has pneumonia * Patient may have an acute exacerbation of CHF and will diurese him cautiously given his CKD 3. * Wean oxygen as tolerated * Possible the patient may have also had a mucous plugging that may have caused him to be acutely hypoxic, or he has been chronicaly hypoxic and it was seen when EMS came to place him back in his wheelchair.. Will put him on chest physiotherapy * check records from [facility] in [facility] [place]: showed pt had 2 vessle risk PCI on 06/29/2019 with stents to mid-distal left cir and left main * pulmonary following 2. Presumed acute heart failure with preserved ejection fraction EF 55%, complicated by severe pulmonary HTN of RVSP of 86 Plan: * furosemide back to IV * Continue with amiodarone 3. History of venous thromboembolic disease Is a explains it, the patient underwent CPR and then apparently was throwi ng clots to his lower extremities which led to him having what sounds like a necrotic leg on his right which was subsequently amputated above the knee. Plan: Continue with rivaroxaban 4. Diabetes mellitus type 2 Plan: Continue with glargine as well as prandial insulin. + Scale insulin as well. 5. COPD Given lack of improvement will add methylpred No effect with IV steroids. Changed to PO for 5 days 6. CKD 3B Monitor while patient is diuresis 7. VTE prophylaxis: Not indicated as patient is already anticoagulated 8. Advanced care planning: Discussed with the patient. Patient wished to be full CODE STATUS. 9. Disposition: Ongoing. Pt will need to be on far less oxygen prior to dis charge as he was on a road trip. Charges/Coding Visit Charges Inpatient E&M: 76796 Subs Hosp L2
[2020-12-07] MEDS: Furosemide 40 MG/4 ML Vial IV ×2 (15:16→21:52)
[2020-12-07 16:41] LABS: Bedside Glucose 429 mg/dL (70-110)
[2020-12-07] MEDS: Tamsulosin HCl 0.4 MG Capsule PO (17:40)
[2020-12-07] MEDS: Rivaroxaban 15 MG Tablet PO (17:40)
[2020-12-07] MEDS: Atorvastatin Calcium 40 MG Tablet PO (21:52)
[2020-12-07] MEDS: NETARSUDIL MESYLATE 1 DRP OPHTHALMIC (22:04)
[2020-12-07 22:51] LABS: Bedside Glucose 290 mg/dL (70-110)
[2020-12-07] MEDS: Albuterol 2.5 MG/3 ML VIAL.NEB. INHALATION (22:52)
[2020-12-08] VITALS (13 sets, daily range): BP systolic 110–142; BP diastolic 46–73; PULSE 56–70; RESP 16–24; TEMP 36.5–37.1; O2SAT 84–95
[2020-12-08] MEDS: Levothyroxine 88 MCG Tablet PO (05:55)
[2020-12-08] MEDS: 0.9% Saline Lock 10 ML Syringe IV ×2 (05:55→13:07)
[2020-12-08] MEDS: Furosemide 40 MG/4 ML Vial IV ×3 (05:55→20:25)
[2020-12-08 06:56] LABS: Bedside Glucose 285 mg/dL (70-110)
--- NOTE | 2020-12-08 07:02 | PCM.PN.INT ---
Assessment & Plan Assessment/Plan (1) Acute respiratory failure with hypoxia: PLAN: RECOMMENDATIONS: 1. Continue to wean supplemental oxygen as tolerated. 2. Continue diuretic regimen as tolerated by hemodynamics and renal function. 3. Encourage incentive spirometer use and mobilize patient as tolerated. 4. Continue scheduled bronchodilator therapy. 5. Okay to transition to prednisone to complete 5-day burst. 6. Empiric BiPAP therapy with sleep. IMPRESSIONS: 1. Acute on chronic hypoxemic respiratory failure Likely secondary to decompensated heart failure with cor pulmonale contributing. The patient has been responding to diuretic therapy. Oxygenation status is improving. He does report that he regularly utilizes 3 L/min at his baseline. Plan to continue diuretic regimen as tolerated by hemodynamics and renal function. Continue scheduled bronchodilators along with IV steroids. The patient can be transitioned to prednisone to complete a 5-day burst. The patient should follow-up with his primary cop breaker after discharge. 2. CHF/CKD stage IIIb/diabetes mellitus type 2/history of VTE/morbid obesity/decreased mobility Complicates care, management, recovery and prognosis. Diabetes is likely to be exacerbated by steroid therapy. Continue with aggressive diuresis. No indications for discontinuation of anticoagulation from my perspective. This note was generated with [employer] dictation software. It may contain incorrect words, spelling, and punctuation that were not noted in checking the note before signing. Subjective Subjective The patient was seen and examined at the bedside this morning. Events from the last 24 hours have been reviewed. The patient is currently afebrile, hemodynamically stable and maintaining appropriate oxygen saturations on 6 L/min via nasal cannula. The patient is currently documented to be overall net -7 L for the hospital admission. The patient denies any shortness of breath. He does report that he was previously diagnosed with KIEL, but does not regularly utilize any form of nocturnal Pap therapy. He does have a baseline requirement of 3 L/min of supplemental oxygen. Objective Data Objective Data The patient's most recent lab work, culture data and imaging studies have all been personally reviewed. Surface echocardiogram revealed moderate concentric LVH with an ejection fraction of 55% and stage I diastolic dysfunction. Pulmonary artery systolic pressure was estimated to be 86 mmHg. Rapid coronavirus antigen testing was negative. Vital Signs: Vital Signs Temp Pulse Resp BP Pulse Ox 97.7 F L 56 L 16 110/46 L 94 12/08/20 04:00 12/08/20 04:00 12/08/20 04:00 12/08/20 04:00 12/08/20 04:00 Oxygen Flow Rate (L/min) 7 Oxygen Delivery Method Nasal Cannula Weight: 286 lb 9.615 oz Body Mass Index (BMI) 39.1 Intake & Output: Intake and Output for Last 24 Hours 12/06/20 12/07/20 12/08/20 23:59 23:59 23:59 Intake Total 1640 / 1640 1560 / 1800 340 / 340 Output Total 3125 / 3125 4400 / 5000 1700 / 1700 Balance -1485 / -1485 -2840 / -3200 -1360 / -1360 Lab / Micro Data Attestation: I reviewed the patient's lab results. Result Diagrams: 12/07/20 05:25 12/08/20 05:58 Labs: Laboratory Results - last 24 hr 12/07/20 08:20: POC Glucose 231 H 12/07/20 11:46: POC Glucose 329 H 12/07/20 16:36: POC Glucose 429 H 12/07/20 21:59: POC Glucose 290 H 12/08/20 06:50: POC Glucose 285 H Micro: Microbiology 12/05/20 06:50 Mucosa - Nose SARS-CoV-2 Antigen (Rapid) - Final Physical Exam Const alert and no apparent distress General Appearance: cooperative Nutritional Appearance: morbidly obese HEENT normocephalic and head/scalp atraumatic Eyes PERRL and EOMs intact bilaterally Neck supple General: trachea midline Resp Auscultation: diminished lung sounds; Negative for rales, rhonchi or wheezes Cardio regular rate and regular rhythm GI normal to inspection, nondistended, normoactive bowel sounds Extremity General Extremity: amputation Skin General Skin Exam: venous stasis and dermatitis Neuro CN's II-XII intact bilaterally and no focal motor deficits Psych cooperative and affect normal Charges/Coding Visit Charges Inpatient E&M: 23078 Subs Hosp L2
[2020-12-08 07:10] LABS: ALB/GLOB Ratio 0.9 RATIO (0.9-2.4); AST(SGOT) 9 U/L (15-37); Alanine Aminotransfer ALT/SGPT 19 U/L (16-61); Albumin, Serum 3.3 g/dL (3.2-5.0); Alkaline Phosphatase 87 U/L (45-117); Anion Gap 9 (5-15); BUN 66 mg/dL (7-18); BUN/Creat Ratio 30.6 RATIO (10-20); Chloride 96 mmol/L (98-107); Creatinine, Serum 2.16 mg/dL (0.70-1.30); EST Glomerular Filtration Rate 33 mL/min (>60); Est Glom Filt Rate - Afr Amer 40 mL/min (>60); Estimated Creatinine Clearance 37.92 ml/min; Globulin 3.6 g/dL (2.2-4.2); Glucose 285 mg/dL (74-106); Potassium 4.1 mmol/L (3.5-5.1); Protein, Total 6.9 g/dL (6.4-8.2); Sodium Level 137 mmol/L (136-145)
[2020-12-08] MEDS: Ipratropium/Albuterol Sulfate 3 ML AMPUL.NEB INHALATION ×3 (07:37→18:49)
[2020-12-08] MEDS: Insulin Lispro 100 UNIT/ML INSULN.PEN 20 UNIT SC ×3 (08:48→16:37)
[2020-12-08] MEDS: Insulin Lispro 100 UNIT/ML INSULN.PEN SC ×3 (08:48→16:37)
[2020-12-08] MEDS: BRIMONIDINE 0.15% 5 ML Bottle 1 DRP EACH EYE ×2 (08:49→20:25)
[2020-12-08] MEDS: Amiodarone 200 MG Tablet PO (08:49)
[2020-12-08] MEDS: Empagliflozin 10 MG Tablet PO (08:50)
[2020-12-08] MEDS: Dorzolamide HCL/Timolol 10 ml Bottle 1 DRP EACH EYE ×2 (08:50→20:24)
[2020-12-08] MEDS: TICAGRELOR 90 MG TABLET PO ×2 (08:50→20:25)
[2020-12-08] MEDS: guaiFENesin 600 MG Tablet PO ×2 (08:51→20:25)
[2020-12-08] MEDS: amLODIPine 10 MG Tablet PO (08:51)
[2020-12-08] MEDS: Pantoprazole Sodium 40 MG Tablet PO (08:51)
[2020-12-08] MEDS: Ergocalciferol 1.25 MG (50, 000 UNIT) Capsule PO (08:52)
[2020-12-08] MEDS: buPROPion (XL) 150 MG TABLET.XL PO (08:52)
[2020-12-08 09:00] LABS: Bedside Glucose 308 mg/dL (70-110)
[2020-12-08] MEDS: Metoprolol(XL)Succ 50 MG Tablet PO (09:00)
--- NOTE | 2020-12-08 10:30 | CASEMGMT ---
[facility] PALACI[facility] completed palliative screening tool due to Lace/Strata 3. Patient meets criteria for palliative consult. TELLO Dickson updated and consult declined as [place].
--- NOTE | 2020-12-08 10:33 | PCM.DC ---
Discharge Instructions Follow Up Care Test Results: Test results from this visit will be discussed in further detail at your follow-up appointment, if applicable. Discharge Plan Admission Admit Date/Time: 12/05/20 07:46 Attending Provider: Jhonny Cardozo Primary Care Provider: Care Physician,No Primary Consulting Providers: Jhon Landa ; Leonidas Freedman ; Jeanne Richard NP Discharge Orders/Prescriptions Prescriptions: No Action amiodarone 200 mg Tablet 200 mg PO DAILY RF: 0 tamsulosin 0.4 mg Capsule 0.4 mg PO DAILY RF: 0 amlodipine 10 mg Tablet 10 mg PO DAILY RF: 0 pantoprazole 40 mg Tablet,Delayed Release (Dr/Ec) 40 mg PO DAILY RF: 0 furosemide [Lasix] 20 mg Tablet 20 mg PO DAILY RF: 0 brimonidine 0.15 % Drops 1 drp EACH EYE BID RF: 0 Vitamin D2 25,000 unit Capsule 50,000 unit PO QWEEK RF: 0 insulin lispro [Humalog KwikPen Insulin] 100 unit/mL Insulin Pen 25 unit SUBCUT TID RF: 0 Lantus U-100 Insulin 100 unit/mL Cartridge 20 unit SUBCUT DAILY RF: 0 Lantus U-100 Insulin 100 unit/mL Cartridge 60 unit SUBCUT QPM RF: 0 levothyroxine 75 mcg Capsule 88 mcg PO DAILY RF: 0 Brilinta 90 mg Tablet 90 mg PO BID RF: 0 Jardiance 25 mg Tablet 10 mg PO DAILY RF: 0 Rhopressa 0.02 % Drops 1 drp EACH EYE QPM RF: 0 metoprolol succinate 50 mg Capsule,Sprinkle,Er 24hr 50 mg PO DAILY RF: 0 Xeralto 15 mg PO.IVFORM DINNER RF: 0 trazodone 50 mg Tablet 50 mg PO QHS RF: 0 bupropion HCl 150 mg tablet extended release 24 hr 150 mg PO DAILY RF: 0 atorvastatin 40 mg tablet 40 mg PO QHS RF: 0 dorzolamide-timolol 22.3-6.8 mg/mL drops 1 drp EACH EYE BID RF: 0 Anoro Ellipta 62.5-25 mcg/actuation blister with device 1 ea INHALATION DAILY RF: 0 Referrals / Follow Up: Care Physician,No Primary [Primary Care Provider] -
[2020-12-08 11:26] LABS: Bedside Glucose 387 mg/dL (70-110)
--- NOTE | 2020-12-08 13:50 | PN.HOSP_ITS ---
Documented by User: Binh JAVED 12/08/20 14:01 Subjective Subjective Patient is a 65-year-old male comfortably resting in bed, alert and oriented x3. Patient reports mild shortness of breath, although reports improvement from admission. Denies chest pain, palpitations, hemoptysis, sputum production, f ever, chills, N/V/D. Objective Data Objective Data Vital Signs: Vital Signs Temp Pulse Resp BP Pulse Ox 98.5 F 70 18 132/65 H 95 12/08/20 13:03 12/08/20 13:03 12/08/20 13:03 12/08/20 13:03 12/08/20 13:03 Oxygen Flow Rate (L/min) 6 Oxygen Delivery Method Nasal Cannula Weight: 281 lb 12.012 oz Body Mass Index (BMI) 39.1 Intake & Output: Intake and Output for Last 24 Hours 12/06/20 12/07/20 12/08/20 23:59 23:59 23:59 Intake Total 1640 / 1640 1560 / 1800 580 / 580 Output Total 3125 / 3125 4400 / 5000 2500 / 2500 Balance -1485 / -1485 -2840 / -3200 -1920 / -1920 Lab / Micro Data Result Diagrams: 12/07/20 05:25 12/08/20 05:58 Labs: Laboratory Results - last 24 hr 12/07/20 16:36: POC Glucose 429 H 12/07/20 21:59: POC Glucose 290 H 12/08/20 05:58: Sodium 137, Potassium 4.1, Chloride 96 L, Carbon Dioxide 32.0, Anion Gap 9, BUN 66 H, Creatinine 2.16 H, Estim Creat Clear Calc 37.92, Est GFR (MDRD) Af Amer 40 L, Est GFR (MDRD) Non-Af 33 L, BUN/Creatinine Ratio 30.6 H, Glucose 285 H, Calcium 9.0, Total Bilirubin 0.60, AST 9 L, ALT 19, Alkaline Phosphatase 87, Total Protein 6.9, Albumin 3.3, Globulin 3.6, Albumin/Globulin Ratio 0.9 12/08/20 06:50: POC Glucose 285 H 12/08/20 08:44: POC Glucose 308 H 12/08/20 11:21: POC Glucose 387 H Micro: Microbiology 12/05/20 06:50 Mucosa - Nose SARS-CoV-2 Antigen (Rapid) - Final Physical Exam Const alert, oriented x3 and no apparent distress HEENT head/scalp atraumatic and moist oral mucous membranes Head and Scalp: normocephalic Eyes EOMs intact bilaterally and conjunctivae normal Neck no lymphadenopathy, supple and no JVD Resp Resp Narrative: Currently satting 95% on 6 L, baseline is between 3 and 4. Effort and Inspection: labored Auscultation: diminished lung sounds Cardio regular rate, regular rhythm, no murmurs and no JVD GI normal to inspection, nondistended, normoactive bowel sounds, soft to palpation and non-tender Extremity normal to inspection, full ROM and no clubbing, cyanosis or edema Skin no rashes or lesions noted, no wounds, skin turgor normal and no jaundice Neuro CN's II-XII intact bilaterally Psych affect normal Assessment & Plan Assessment/Plan (1) Acute respiratory failure with hypoxia: (2) Acute hypoxemic respiratory failure: (3) COPD (chronic obstructive pulmonary disease): PLAN: Day 4: See subjective. 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 1) acute on chronic hypoxic respiratory failure Etiology mixed between COPD, CHF, sleep apnea and severe pulmonary hypertension. Rapid Covid was negative and patient has been fully vaccinated for COVID-19. Currently satting at 95% on 6 L via nasal cannula, baseline between 3-4. Disposition complicated by fact that patient was traveling at the time of exacerbation and home is in [place]. Plan; continue bronchodilators, continue metoprolol, continue Lasix and steroids. 2)HFpEF Echocardiogram from 12/05 demonstrated normal LV size and systolic function, moderate concentric LVH, estimated EF of 55%, stage I diastolic dysfunction and severe pulmonary hypertension pulmonary artery systolic pressure of 86 mmHg. Plan: furosemide back to IV. Continue with amiodarone 3) history of venous thromboembolic disease Continue Xarelto 4) Diabetes mellitus type 2 Continue with glargine as well as prandial insulin, sliding scale insulin ordered. 5) COPD As above. 6) CKD stage IIIb Continue to monitor BMP. DVT prophylaxis - [place] Patient seen by Binh Dickson PA-C, under the supervision of Dr. Kittoe. Documented by User: Dr. Jhonny Cardozo MD 12/08/20 15:01 Objective Data Lab / Micro Data Result Diagrams: 12/07/20 05:25 12/08/20 05:58 Assessment & Plan Addt'l Comments This patient was seen in conjunction with Binh Dickson PA-C. I have independently interviewed and examined the patient and reviewed pertinent historical, laboratory, and other data. Please refer to Binh Dickson PA-C's note for details of this patient's presentation, findings, and recommendations. I have reviewed Binh Dickson PA-C's note and concur with documented findings. In brief, patient is a 65-year-old gentleman admitted with progressive shortness of breath Physical Examination: GENERAL: Frail looking HEENT: Atraumatic; EYES; Anicteric, Normal Conjunctiva NECK; supple, normal thyroid, RESPIRATORY: Diminished to auscultation CARDIOVASCULAR: Regular S1 S2, GI: soft, normoactive bowel sounds, SKIN: No Rash PSYCH; Flat affect Assessment: 1. Acute hypoxic respiratory failure 2. COPD with acute exacerbation 3. CHF 4. Obstructive sleep apnea 5. Diabetes mellitus type 2 6. Dyslipidemia 7. 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 Chronic kidney disease stage III 9. Hypothyroidism 10. Dyslipidemia 11. Paroxysmal A. fib 12. Essential hypertension 13. Depression 14. GERD 15. BPH 16. Coronary artery disease Recommendations: 1. I have discussed the results of my overview and impressions with the patient 2. Options for management were reviewed Charges/Coding Visit Charges Inpatient E&M: 22229 Subs Hosp L2
[2020-12-08] MEDS: Tamsulosin HCl 0.4 MG Capsule PO (16:37)
[2020-12-08] MEDS: Rivaroxaban 15 MG Tablet PO (16:37)
[2020-12-08 16:51] LABS: Bedside Glucose 287 mg/dL (70-110)
[2020-12-08] MEDS: NETARSUDIL MESYLATE 1 DRP OPHTHALMIC (20:25)
[2020-12-08] MEDS: Atorvastatin Calcium 40 MG Tablet PO (20:25)
[2020-12-08 20:41] LABS: Bedside Glucose 379 mg/dL (70-110)
[2020-12-09] VITALS (7 sets, daily range): BP systolic 130–145; BP diastolic 60–75; PULSE 52–69; RESP 18–20; TEMP 36.7–37.2; O2SAT 91–94
[2020-12-09 05:31] LABS: Absolute Lymphocyte Count 0.41 X10^3/uL (0.83-4.51); Absolute Neutrophil Count 9.7 X10^3/uL (2.0-7.7); Basophil# 0.02 X10^3/uL; Basophil% 0.2 % (0-1); Hematocrit 42.3 % (40-54); Hemoglobin 11.8 g/dL (13.0-16.5); Lymphocyte # 0.41 X10^3/ul (0.83-4.51); Lymphocyte % 3.7 % (19-41); Mean Corp Hgb Conc 27.9 g/dL (32-36); Mean Corpuscular Hgb 20.4 pg (27.0-32.0); Mean Corpuscular Volume 73.2 fL (80-94); Mean Platelet Vol. 9.9 fl (6.2-12.0); Monocyte# 0.76 X10^3/uL; Monocyte% 6.9 % (0-10); NRBC Flagged by Analyzer 0 % (0-5); Neutrophil # 9.71 X10^3/uL (2.7-7.7); Neutrophil % 88.5 % (47-70); POSITIVE DIFFERENTIAL YES; Platelet Count 318 K/mm3 (150-450); RBC Distribution Width CV 19.7 % (11.6-14.6); RBC Distribution Width SD 48.4 fl (35.1-43.9); Red Blood Count 5.78 M/mm3 (4.6-6.2)
[2020-12-09 05:43] LABS: Differential Indicated SCAN CRITERIA MET
[2020-12-09 05:53] LABS: Anion Gap 8 (5-15); BUN 75 mg/dL (7-18); BUN/Creat Ratio 30.7 RATIO (10-20); Calcium,Total 8.9 mg/dL (8.5-10.1); Chloride 95 mmol/L (98-107); Creatinine, Serum 2.44 mg/dL (0.70-1.30); EST Glomerular Filtration Rate 29 mL/min (>60); Est Glom Filt Rate - Afr Amer 35 mL/min (>60); Estimated Creatinine Clearance 33.57 ml/min; Glucose 322 mg/dL (74-106); Potassium 4.1 mmol/L (3.5-5.1); Sodium Level 136 mmol/L (136-145)
[2020-12-09] MEDS: Levothyroxine 88 MCG Tablet PO (06:07)
[2020-12-09] MEDS: Furosemide 40 MG/4 ML Vial IV (06:07)
[2020-12-09] MEDS: Insulin Lispro 100 UNIT/ML INSULN.PEN SC (08:48)
[2020-12-09] MEDS: Insulin Lispro 100 UNIT/ML INSULN.PEN 20 UNIT SC (08:48)
[2020-12-09] MEDS: BRIMONIDINE 0.15% 5 ML Bottle 1 DRP EACH EYE (08:49)
[2020-12-09] MEDS: Dorzolamide HCL/Timolol 10 ml Bottle 1 DRP EACH EYE (08:50)
[2020-12-09] MEDS: TICAGRELOR 90 MG TABLET PO (08:52)
[2020-12-09] MEDS: Metoprolol(XL)Succ 50 MG Tablet PO (08:53)
[2020-12-09] MEDS: Amiodarone 200 MG Tablet PO (08:53)
[2020-12-09] MEDS: guaiFENesin 600 MG Tablet PO (08:53)
[2020-12-09] MEDS: Empagliflozin 10 MG Tablet PO (08:53)
[2020-12-09] MEDS: amLODIPine 10 MG Tablet PO (08:53)
[2020-12-09] MEDS: Pantoprazole Sodium 40 MG Tablet PO (08:53)
[2020-12-09] MEDS: buPROPion (XL) 150 MG TABLET.XL PO (08:54)
[2020-12-09 09:11] LABS: Bedside Glucose 289 mg/dL (70-110)
--- NOTE | 2020-12-09 10:05 | PCM.DC ---
Discharge Instructions Diet Discharge Diet: No restrictions Activity Discharge Activity: Return to Normal Activity Weight Bearing Status: No weight bearing Dressing / Incision Call your doctor if you observe: Fever of 101 or Higher, Inability to urinate, Shortness of breath and Chest pain Follow Up Care Please Follow Up With: Primary care provider When: Within the next two weeks. Test Results: Test results from this visit will be discussed in further detail at your follow-up appointment, if applicable. Discharge Plan Admission Admit Date/Time: 12/05/20 07:46 Primary Reason for Your Visit: Shortness of breath & hypoxia. Attending Provider: Jhonny Cardozo Primary Care Provider: Care Physician,No Primary Consulting Providers: Jhon Landa ; Leonidas Freedman ; Jeanne Richard PULMONARY DISEASE SPECIALIST Discharge Orders/Prescriptions Prescriptions: New prednisone 20 mg tablet 40 mg PO DAILY Qty: 10 RF: 0 Continued amiodarone 200 mg Tablet 200 mg PO DAILY RF: 0 tamsulosin 0.4 mg Capsule 0.4 mg PO DAILY RF: 0 amlodipine 10 mg Tablet 10 mg PO DAILY RF: 0 pantoprazole 40 mg Tablet,Delayed Release (Dr/Ec) 40 mg PO DAILY RF: 0 furosemide [Lasix] 20 mg Tablet 20 mg PO DAILY RF: 0 brimonidine 0.15 % Drops 1 drp EACH EYE BID RF: 0 ergocalciferol (vitamin D2) 25,000 unit Capsule 50,000 unit PO QWEEK RF: 0 insulin lispro [Humalog KwikPen Insulin] 100 unit/mL Insulin Pen 25 unit SUBCUT TID RF: 0 insulin glargine 100 unit/mL Cartridge 20 unit SUBCUT DAILY RF: 0 insulin glargine 100 unit/mL Cartridge 60 unit SUBCUT QPM RF: 0 levothyroxine 75 mcg Capsule 88 mcg PO DAILY RF: 0 Brilinta 90 mg Tablet 90 mg PO BID RF: 0 Jardiance 25 mg Tablet 10 mg PO DAILY RF: 0 Rhopressa 0.02 % Drops 1 drp EACH EYE QPM RF: 0 metoprolol succinate 50 mg Capsule,Sprinkle,Er 24hr 50 mg PO DAILY RF: 0 Xeralto 15 mg PO.IVFORM DINNER RF: 0 trazodone 50 mg Tablet 50 mg PO QHS RF: 0 bupropion HCl 150 mg tablet extended release 24 hr 150 mg PO DAILY RF: 0 atorvastatin 40 mg tablet 40 mg PO QHS RF: 0 dorzolamide-timolol 22.3-6.8 mg/mL drops 1 drp EACH EYE BID RF: 0 Anoro Ellipta 62.5-25 mcg/actuation blister with device 1 ea INHALATION DAILY RF: 0 Referrals / Follow Up: Care Physician,No Primary [Primary Care Provider] - Within 2 Weeks Disposition Disposition (needs filled in before D/C Order can be placed): Home, Self Care
--- NOTE | 2020-12-09 10:18 | DS.PCM_ITS ---
Documented by User: Binh JAVED 12/09/20 10:33 Providers Date of Admission: 12/05/20 Primary Care Physician: No Primary Care Phys Consultations 12/07/20 07:38 Consult: Internal Grinding Machine Operator / Pulmonary Medicine Routine Consulting Provider: Pulmonary Medicine ariadna [facility] Reason for Consult: respiratory failure EMERGENT Consult: No MD Notified: Yes Date Notified: 12/07/20 Time Notified: 07:38 Method of Notification: Text Reason For Visit: ACUTE RESPIRATORY FAILURE Diagnosis Discharge Diagnosis (1) Acute respiratory failure with hypoxia: Status: Acute Code(s): J96.01 - Acute respiratory failure with hypoxia (2) Acute hypoxemic respiratory failure: Status: Acute Code(s): J96.01 - Acute respiratory failure with hypoxia (3) COPD (chronic obstructive pulmonary disease): Status: Chronic Code(s): J44.9 - Chronic obstructive pulmonary disease, unspecified Medications at Discharge Home Medications Anoro Ellipta 1 ea INHALATION DAILY 12/05/20 Brilinta 90 mg PO BID 12/05/20 Jardiance 10 mg PO DAILY 12/05/20 Rhopressa 1 drp EACH EYE QPM 12/05/20 Xeralto 15 mg PO.IVFORM DINNER 12/05/20 amiodarone 200 mg PO DAILY 12/05/20 amlodipine 10 mg PO DAILY 12/05/20 atorvastatin 40 mg PO QHS 12/05/20 brimonidine 1 drp EACH EYE BID 12/05/20 bupropion HCl 150 mg PO DAILY 12/05/20 dorzolamide-timolol 1 drp EACH EYE BID 12/05/20 ergocalciferol (vitamin D2) 50,000 unit PO QWEEK 12/05/20 furosemide [Lasix] 20 mg PO DAILY 12/05/20 insulin glargine 20 unit SUBCUT DAILY 12/05/20 insulin glargine 60 unit SUBCUT QPM 12/05/20 insulin lispro [Humalog KwikPen Insulin] 25 unit SUBCUT TID 12/05/20 levothyroxine 88 mcg PO DAILY 12/05/20 metoprolol succinate 50 mg PO DAILY 12/05/20 pantoprazole 40 mg PO DAILY 12/05/20 tamsulosin 0.4 mg PO DAILY 12/05/20 trazodone 50 mg PO QHS 12/05/20 prednisone 40 mg PO DAILY #10 tab 12/09/20 Hospital Course Summary of Care Provided Minutes Spent on Discharge: 35 Hospital Course: Disposition: Patient to be discharged back home to [place] today. 1) acute on chronic hypoxic respiratory failure Etiology mixed between COPD, CHF, sleep apnea and severe pulmonary hypertension. Rapid Covid was negative and patient has been fully vaccinated for COVID-19. Currently satting at 92% on 3L via nasal cannula, baseline between 3-4. Patient would likely benefit from continued diuresis as an inpatient, however, patient desires to return home and voices understanding to the risks associated to include worsening of his condition and possible . Plan; prednisone 40 mg x 5 days initiated discharge, Lasix 20 mg p.o. daily initiated at discharge, lower dose of Lasix initiated due to patient's elevated creatinine. 2)HFpEF Echocardiogram from 12/05 demonstrated normal LV size and systolic function, moderate concentric LVH, estimated EF of 55%, stage I diastolic dysfunction and severe pulmonary hypertension pulmonary artery systolic pressure of 86 mmHg. Plan: furosemide back to IV. Continue with amiodarone 3) history of venous thromboembolic disease Continue Xarelto 4) Diabetes mellitus type 2 Continue with glargine as well as prandial insulin, sliding scale insulin ordered. 5) COPD As above. 6) RANDY on CKD IIIb Creatinine currently 2.4, no baseline to compare to. Patient likely would benefit from continued diuresis in the hospital but desires to be discharged today. Plan; low-dose Lasix initiated as above. Patient seen by Binh Dickson PA-C, under the supervision of Dr. Cardozo. Physical Exam Narrative Patient is a 65-year-old male comfortably resting in bed, alert and orient x3. Patient reports continued improvement of shortness of breath for admission. Denies chest pain, shortness of breath, palpitations, hemoptysis, sputum production, fever, chills, N/V/D. Const alert, oriented x3 and no apparent distress HEENT normocephalic, head/scalp atraumatic and hearing grossly normal bilaterally Eyes EOMs intact bilaterally and conjunctivae normal Neck no lymphadenopathy, supple and no JVD Resp normal respiratory effort, no retractions and no use of accessory muscles Auscultation: diminished lung sounds Cardio regular rate, regular rhythm, no murmurs and no JVD GI normal to inspection, nondistended, normoactive bowel sounds, soft to palpation and non-tender Extremity Extremity Narrative: RLE above the knee amputation. Skin no rashes or lesions noted, no wounds and skin turgor normal Neuro CN's II-XII intact bilaterally Psych affect normal Weight / BMI Weight Weight: 279 lb 15.793 oz Body Mass Index (BMI) 39.1 ABG / Lab / Microbiology Data Result Diagrams: 12/09/20 05:06 12/09/20 05:06 Laboratory: Laboratory Results - last 24 hr 12/08/20 11:21: POC Glucose 387 H 12/08/20 16:35: POC Glucose 287 H 12/08/20 20:19: POC Glucose 379 H 12/09/20 05:06: WBC 11.0, RBC 5.78, Hgb 11.8 L, Hct 42.3, MCV 73.2 L, MCH 20.4 L , MCHC 27.9 L, RDW Std Deviation 48.4 H, RDW Coeff of Alan 19.7 H, Plt Count 318, MPV 9.9, Immature Gran % (Auto) 0.700, Neut % (Auto) 88.5 H, Lymph % (Auto) 3.7 L, Fisher % (Auto) 6.9, Eos % (Auto) 0.0, Baso % (Auto) 0.2, Absolute Neuts (auto) 9.7 H, Absolute Lymphs (auto) 0.41 L, Nucleated RBC % 0 12/09/20 05:06: Sodium 136, Potassium 4.1, Chloride 95 L, Carbon Dioxide 33.0 H, Anion Gap 8, BUN 75 H, Creatinine 2.44 H, Estim Creat Clear Calc 33.57, Est GFR (MDRD) Af Amer 35 L, Est GFR (MDRD) Non-Af 29 L, BUN/Creatinine Ratio 30.7 H, Glucose 322 H, Calcium 8.9 12/09/20 07:51: POC Glucose 289 H Microbiology: Microbiology 12/05/20 06:50 Mucosa - Nose SARS-CoV-2 Antigen (Rapid) - Final D/C Instructions Discharge Diet: No restrictions Weight Bearing Status: No weight bearing Call your doctor if you observe: Fever of 101 or Higher, Inability to urinate, Shortness of breath and Chest pain Please Follow Up With: Primary care provider When: Within the next two weeks. Meaningful Use Info Meaningful Use Diagnoses (Choose all that apply): CHF CHF JACEK/ARB ordered at discharge?: No Reason JACEK/ARB not ordered?: Worsening renal disease Documented LVEF (%): 55 Discharge Plan Admission Admit Date/Time: 12/05/20 07:46 Primary Reason for Your Visit: Shortness of breath & hypoxia. Attending Provider: Jhonny Cardozo Primary Care Provider: Care Physician,No Primary Consulting Providers: Jhon Landa ; Leonidas Freedman ; Jeanne Richard IMCU NURSE Discharge Orders/Prescriptions Prescriptions: New prednisone 20 mg tablet 40 mg PO DAILY Qty: 10 RF: 0 Continued amiodarone 200 mg Tablet 200 mg PO DAILY RF: 0 tamsulosin 0.4 mg Capsule 0.4 mg PO DAILY RF: 0 amlodipine 10 mg Tablet 10 mg PO DAILY RF: 0 pantoprazole 40 mg Tablet,Delayed Release (Dr/Ec) 40 mg PO DAILY RF: 0 furosemide [Lasix] 20 mg Tablet 20 mg PO DAILY RF: 0 brimonidine 0.15 % Drops 1 drp EACH EYE BID RF: 0 ergocalciferol (vitamin D2) 25,000 unit Capsule 50,000 unit PO QWEEK RF: 0 insulin lispro [Humalog KwikPen Insulin] 100 unit/mL Insulin Pen 25 unit SUBCUT TID RF: 0 insulin glargine 100 unit/mL Cartridge 20 unit SUBCUT DAILY RF: 0 insulin glargine 100 unit/mL Cartridge 60 unit SUBCUT QPM RF: 0 levothyroxine 75 mcg Capsule 88 mcg PO DAILY RF: 0 Brilinta 90 mg Tablet 90 mg PO BID RF: 0 Jardiance 25 mg Tablet 10 mg PO DAILY RF: 0 Rhopressa 0.02 % Drops 1 drp EACH EYE QPM RF: 0 metoprolol succinate 50 mg Capsule,Sprinkle,Er 24hr 50 mg PO DAILY RF: 0 Xeralto 15 mg PO.IVFORM DINNER RF: 0 trazodone 50 mg Tablet 50 mg PO QHS RF: 0 bupropion HCl 150 mg tablet extended release 24 hr 150 mg PO DAILY RF: 0 atorvastatin 40 mg tablet 40 mg PO QHS RF: 0 dorzolamide-timolol 22.3-6.8 mg/mL drops 1 drp EACH EYE BID RF: 0 Anoro Ellipta 62.5-25 mcg/actuation blister with device 1 ea INHALATION DAILY RF: 0 Referrals / Follow Up: Care Physician,No Primary [Primary Care Provider] - Within 2 Weeks Disposition Disposition (needs filled in before D/C Order can be placed): Home, Self Care Documented by User: Dr. Jhonny Cardozo MD 12/09/20 11:54 Providers Date of Admission: 12/05/20 Reason For Visit: ACUTE RESPIRATORY FAILURE Medications at Discharge Home Medications Anoro Ellipta 1 ea INHALATION DAILY 12/05/20 Brilinta 90 mg PO BID 12/05/20 Jardiance 10 mg PO DAILY 12/05/20 Rhopressa 1 drp EACH EYE QPM 12/05/20 Xeralto 15 mg PO.IVFORM DINNER 12/05/20 amiodarone 200 mg PO DAILY 12/05/20 amlodipine 10 mg PO DAILY 12/05/20 atorvastatin 40 mg PO QHS 12/05/20 brimonidine 1 drp EACH EYE BID 12/05/20 bupropion HCl 150 mg PO DAILY 12/05/20 dorzolamide-timolol 1 drp EACH EYE BID 12/05/20 ergocalciferol (vitamin D2) 50,000 unit PO QWEEK 12/05/20 furosemide [Lasix] 20 mg PO DAILY 12/05/20 insulin glargine 20 unit SUBCUT DAILY 12/05/20 insulin glargine 60 unit SUBCUT QPM 12/05/20 insulin lispro [Humalog KwikPen Insulin] 25 unit SUBCUT TID 12/05/20 levothyroxine 88 mcg PO DAILY 12/05/20 metoprolol succinate 50 mg PO DAILY 12/05/20 pantoprazole 40 mg PO DAILY 12/05/20 tamsulosin 0.4 mg PO DAILY 12/05/20 trazodone 50 mg PO QHS 12/05/20 prednisone 40 mg PO DAILY #10 tab 12/09/20 Hospital Course Summary of Care Provided Hospital Course: This patient was seen in conjunction with Binh Dickson PA-C. I have independently interviewed and examined the patient and reviewed pertinent historical, laboratory, and other data. Please refer to Binh Dickson PA-C's note for details of this patient's presentation, findings, and recommendations. I have reviewed Binh Dickson PA-C's note and concur with documented findings. In brief, patient is a 65-year-old gentleman admitted with progressive shortness of breath Assessment: 1. Acute hypoxic respiratory failure 2. COPD with acute exacerbation 3. CHF 4. Obstructive sleep apnea 5. Diabetes mellitus type 2 6. Dyslipidemia 7. 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 Chronic kidney disease stage III 9. Hypothyroidism 10. Dyslipidemia 11. Paroxysmal A. fib 12. Essential hypertension 13. Depression 14. GERD 15. BPH 16. Coronary artery disease Hospital course: As documented above ABG / Lab / Microbiology Data Result Diagrams: 12/09/20 05:06 12/09/20 05:06 Discharge Plan Admission Admit Date/Time: 12/05/20 07:46 Primary Reason for Your Visit: Shortness of breath & hypoxia. Attending Provider: Jhonny Cardozo Primary Care Provider: Care Physician,No Primary Consulting Providers: Jhon Landa ; Leonidas Freedman ; Jeanne Richard IMCU NURSE Discharge Orders/Prescriptions Prescriptions: New prednisone 20 mg tablet 40 mg PO DAILY Qty: 10 RF: 0 Continued amiodarone 200 mg Tablet 200 mg PO DAILY RF: 0 tamsulosin 0.4 mg Capsule 0.4 mg PO DAILY RF: 0 amlodipine 10 mg Tablet 10 mg PO DAILY RF: 0 pantoprazole 40 mg Tablet,Delayed Release (Dr/Ec) 40 mg PO DAILY RF: 0 furosemide [Lasix] 20 mg Tablet 20 mg PO DAILY RF: 0 brimonidine 0.15 % Drops 1 drp EACH EYE BID RF: 0 ergocalciferol (vitamin D2) 25,000 unit Capsule 50,000 unit PO QWEEK RF: 0 insulin lispro [Humalog KwikPen Insulin] 100 unit/mL Insulin Pen 25 unit SUBCUT TID RF: 0 insulin glargine 100 unit/mL Cartridge 20 unit SUBCUT DAILY RF: 0 insulin glargine 100 unit/mL Cartridge 60 unit SUBCUT QPM RF: 0 levothyroxine 75 mcg Capsule 88 mcg PO DAILY RF: 0 Brilinta 90 mg Tablet 90 mg PO BID RF: 0 Jardiance 25 mg Tablet 10 mg PO DAILY RF: 0 Rhopressa 0.02 % Drops 1 drp EACH EYE QPM RF: 0 metoprolol succinate 50 mg Capsule,Sprinkle,Er 24hr 50 mg PO DAILY RF: 0 Xeralto 15 mg PO.IVFORM DINNER RF: 0 trazodone 50 mg Tablet 50 mg PO QHS RF: 0 bupropion HCl 150 mg tablet extended release 24 hr 150 mg PO DAILY RF: 0 atorvastatin 40 mg tablet 40 mg PO QHS RF: 0 dorzolamide-timolol 22.3-6.8 mg/mL drops 1 drp EACH EYE BID RF: 0 Anoro Ellipta 62.5-25 mcg/actuation blister with device 1 ea INHALATION DAILY RF: 0 Referrals / Follow Up: Care Physician,No Primary [Primary Care Provider] - Within 2 Weeks Disposition Disposition (needs filled in before D/C Order can be placed): Home, Self Care Charges/Coding Visit Charges Inpatient E&M: 13949 Disch Hosp Hospital Course Consultations Consultations: Consultations 12/07/20 07:38 Consult: Internal Grinding Machine Operator / Pulmonary Medicine Routine Consulting Provider: [facility] Reason for Consult: respiratory failure EMERGENT Consult: No MD Notified: Yes Date Notified: 12/07/20 Time Notified: 07:38 Method of Notification: Text
--- NOTE | 2020-12-09 10:28 | CASEMGMT ---
Per pt/, pt is on 3L nc continuous thru [employer]. Pt has a portable tank that goes up to 6L to get home to [place] on and his concentrator at home is 10L. states she has a pulse ox with her to keep an eye on in the car. Pt currently is on his 3L continuous and is w/c bound so does not ambulate. Pt/ voice no further questions/concerns/needs. SStadria CARLOS CM
--- NOTE | 2020-12-10 15:37 | CASEMGMT ---
[facility] Discharge F/U Phone Call LACE: 12 Strata: 3 Discharge date: 12/09/20 Call date: 12/10/20 Call time: [phone] Admission dx: Acute resp failure Pt's answered phone and states they made it home safely to [place] and pt is doing 'really well.' states no questions regarding discharge instructions/medications. states she has a call out to pt's PCP to set up f/u appt. states no suggestions for HEALTH SYSTEM and states 'you all did a fantastic job.' voices no further questions/concerns/needs. SStaten TERRANCE PALACIOS
== END 2020-12-09 11:00 | disposition home or self-care (01) | DRG 291 ==
LOC: ED 07:31 → PCU 07:46
PROVIDERS: Physician Assistant; Emergency Provider Emergency Medicine; Visit Provider Internal Medicine
DX: I13.0 Hypertensive heart and chronic kidney disease with heart failure and stage 1 through stage 4 chronic kidney disease, or unspecified chronic kidney disease (principal); I50.33 Acute on chronic diastolic (congestive) heart failure; J96.21 Acute and chronic respiratory failure with hypoxia; N17.9 Acute kidney failure, unspecified; J44.1 Chronic obstructive pulmonary disease with (acute) exacerbation; E11.22 Type 2 diabetes mellitus with diabetic chronic kidney disease; N18.32 Chronic kidney disease, stage 3b; D64.9 Anemia, unspecified; W05.0XXA Fall from non-moving wheelchair, initial encounter; Y93.9 Activity, unspecified; Y92.9 Unspecified place or not applicable; E03.9 Hypothyroidism, unspecified; E66.01 Morbid (severe) obesity due to excess calories; E78.5 Hyperlipidemia, unspecified; F32.9 Major depressive disorder, single episode, unspecified; G47.33 Obstructive sleep apnea (adult) (pediatric); H40.9 Unspecified glaucoma; I25.10 Atherosclerotic heart disease of native coronary artery without angina pectoris; I27.20 Pulmonary hypertension, unspecified; I48.0 Paroxysmal atrial fibrillation; K21.9 Gastro-esophageal reflux disease without esophagitis; N40.0 Benign prostatic hyperplasia without lower urinary tract symptoms; Z79.01 Long term (current) use of anticoagulants; Z68.39 Body mass index [BMI] 39.0-39.9, adult; Z79.4 Long term (current) use of insulin; Z86.718 Personal history of other venous thrombosis and embolism; Z87.891 Personal history of nicotine dependence; Z95.810 Presence of automatic (implantable) cardiac defibrillator; Z99.81 Dependence on supplemental oxygen; Z95.5 Presence of coronary angioplasty implant and graft; Z89.611 Acquired absence of right leg above knee; Z99.3 Dependence on wheelchair
CPT/HCPCS: 36415; 71045; 80048; 80053; 82962; 83880; 84484; 85025; 87426; 93005; 93306; 94640; 94667; 94668; 97110; 97161; 97166; 97530; 99285; J7050; Q9957; A4216; C8929; J1940; J3490